=== PATIENT | male | born 1980 | race Caucasian/White ===

== ENCOUNTER 2018-01-09 19:43 | Emergency (ER) | payer SELFPAY ==
[~2018-01-09] VITALS: Ht 177.8 cm; Wt 70.3 kg
[~2018-01-09 19:43] MED LIST: ALBU90OI INH; ASPI81EC PO; Amoxicillin500 MG PO; Cleocin HCl150 MG PO; Cleocin HCl300 MG PO; GLUC500 PO; HYDACE5 PO; HYDACE5325 PO; IBUP800 PO; NAPR500 PO; PENVK500 PO; RXHYD5325 PO; SPACE CHAMBER1 EACH MC; Ultram50 MG PO; Veetids 500500 MG PO
[2018-01-09] MEDS ORDERED: PENVK500 PO (20:48)
[2018-01-09] MEDS ORDERED: IBUP800 PO (20:48)
== END 2018-01-09 20:52 | disposition home or self-care (01) ==
LOC: ER 19:43
DX: K08.89 Other specified disorders of teeth and supporting structures (principal); F17.210 Nicotine dependence, cigarettes, uncomplicated

== ENCOUNTER 2018-01-12 19:40 | Inpatient (IN) | payer SELFPAY ==
[~2018-01-12] VITALS: Ht 177.8 cm; Wt 73.0 kg
[2018-01-12 20:35] LABS: BASOPHILS ABSOLUTE AUTO 0.02 K/mm3 (0.00-0.23); BASOPHILS PERCENT AUTO 0 % (0-2); EOSINOPHILS ABSOLUTE AUTO 0.07 K/mm3 (0.00-0.68); EOSINOPHILS PERCENT AUTO 0 % (0-6); Hematocrit 43.2 % (37.0-53.0); Hemoglobin 15.1 g/dL (13.5-17.5); IMMATURE GRAN ABSOLUTE AUTO 0.09 K/mm3 (0.00-0.10); IMMATURE GRAN PERCENT AUTO 1 % (0-1); LYMPHOCYTES ABSOLUTE AUTO 1.51 K/mm3 (0.84-5.20); LYMPHOCYTES PERCENT AUTO 9 % (21-46); MONOCYTES ABSOLUTE AUTO 1.25 K/mm3 (0.16-1.47); MONOCYTES PERCENT AUTO 8 % (4-13); Mean Corpuscular HGB 30.9 pg (26.0-34.0); Mean Corpuscular Volume 89 fL (80-100); Mean Platelet Volume 9.9 fL (9.1-12.4); NEUTROPHILS ABSOLUTE AUTO 13.74 K/mm3 (1.96-9.15); NEUTROPHILS PERCENT AUTO 82 % (41-73); Platelet Count 296 K/mm3 (150-400); RDW Coefficient Variation 13.2 % (11.7-14.2); RDW Standard Deviation 43.5 fL (35.1-46.3); Red Blood Cell Count 4.88 M/mm3 (4.30-5.90); White Blood Cell Count 16.68 K/mm3 (4.00-11.30)
[2018-01-12 20:47] LABS: Bun/Creatinine Ratio 18.5 (12.0-20.0); Calcium, Blood 8.5 mg/dL (8.5-10.1); Creatinine, Blood 2.54 mg/dL (0.60-1.20); Potassium, Blood 3.6 mmol/L (3.5-5.5)
[2018-01-12] MEDS ORDERED: Aspirin EC325 MG PO (22:22)
[2018-01-12] MEDS ORDERED: ACET500 (22:23)
[2018-01-12 23:12] LABS: Source, Urine Clean Catch
[2018-01-12 23:24] LABS: Bilirubin, Urine Neg (Neg); Blood, Urine 2+ (Neg); Glucose Qualitative, Urine Neg (Neg); Ketones, Urine Neg (Neg); Leukocyte Esterase, Urine Neg (Neg); Nitrite, Urine Neg (Neg); Protein, Urine 1+ (Neg); Urobilinogen, Urine NORM (Normal)
[2018-01-12 23:39] LABS: Appearance, Urine Clear (Clear); Color, Urine Yellow (P-Yellow); U Amphetamine Screen Not Detected; U Barbituate Screen Not Detected; U Benzodiazapine Screen Not Detected; U Buprenorphine Screen Not Detected; U Cannabinoids Screen Not Detected; U Cocaine Screen Not Detected; U Methadone Screen Not Detected; U Methamphetamine Screen Not Detected; U Opiates Screen Not Detected; U Oxycodone Screen Not Detected; U Phencyclidine Screen Not Detected; U Propoxyphene Screen Not Detected
[2018-01-12 23:40] LABS: Red Blood Cells, Urine 0-2 /hpf (0-2); Squamous Epithelial Cells Rare /hpf (Few)
[2018-01-12 23:41] LABS: Bacteria Few /hpf
[2018-01-13 04:58] LABS: BASOPHILS ABSOLUTE AUTO 0.02 K/mm3 (0.00-0.23); BASOPHILS PERCENT AUTO 0 % (0-2); EOSINOPHILS ABSOLUTE AUTO 0.12 K/mm3 (0.00-0.68); EOSINOPHILS PERCENT AUTO 1 % (0-6); Hematocrit 37.8 % (37.0-53.0); Hemoglobin 13.1 g/dL (13.5-17.5); IMMATURE GRAN ABSOLUTE AUTO 0.04 K/mm3 (0.00-0.10); IMMATURE GRAN PERCENT AUTO 0 % (0-1); LYMPHOCYTES ABSOLUTE AUTO 1.81 K/mm3 (0.84-5.20); LYMPHOCYTES PERCENT AUTO 14 % (21-46); MONOCYTES ABSOLUTE AUTO 1.32 K/mm3 (0.16-1.47); MONOCYTES PERCENT AUTO 10 % (4-13); Mean Corpuscular HGB 30.2 pg (26.0-34.0); Mean Corpuscular HGB Conc 34.7 g/dL (31.5-36.5); Mean Corpuscular Volume 87 fL (80-100); Mean Platelet Volume 9.6 fL (9.1-12.4); NEUTROPHILS ABSOLUTE AUTO 9.66 K/mm3 (1.96-9.15); NEUTROPHILS PERCENT AUTO 74 % (41-73); Platelet Count 268 K/mm3 (150-400); RDW Coefficient Variation 13.2 % (11.7-14.2); RDW Standard Deviation 42.5 fL (35.1-46.3); Red Blood Cell Count 4.34 M/mm3 (4.30-5.90); White Blood Cell Count 12.97 K/mm3 (4.00-11.30)
[2018-01-13 05:22] LABS: Albumin, Blood 2.5 g/dL (3.4-5.0); Albumin/Globulin Ratio 0.7 (0.8-1.8); Bilirubin, Total 0.5 mg/dL (0.1-1.0); Bun/Creatinine Ratio 20.1 (12.0-20.0); Creatinine, Blood 1.94 mg/dL (0.60-1.20); Globulin, Blood 3.6 g/dL (2.2-4.0); Potassium, Blood 3.2 mmol/L (3.5-5.5); Total Protein, Blood 6.1 g/dL (6.4-8.2)
[2018-01-14 05:08] LABS: BASOPHILS ABSOLUTE AUTO 0.02 K/mm3 (0.00-0.23); BASOPHILS PERCENT AUTO 0 % (0-2); EOSINOPHILS ABSOLUTE AUTO 0.09 K/mm3 (0.00-0.68); EOSINOPHILS PERCENT AUTO 1 % (0-6); Hematocrit 36.5 % (37.0-53.0); Hemoglobin 12.9 g/dL (13.5-17.5); IMMATURE GRAN ABSOLUTE AUTO 0.04 K/mm3 (0.00-0.10); IMMATURE GRAN PERCENT AUTO 0 % (0-1); LYMPHOCYTES ABSOLUTE AUTO 2.32 K/mm3 (0.84-5.20); LYMPHOCYTES PERCENT AUTO 23 % (21-46); MONOCYTES ABSOLUTE AUTO 1.12 K/mm3 (0.16-1.47); MONOCYTES PERCENT AUTO 11 % (4-13); Mean Corpuscular HGB 30.6 pg (26.0-34.0); Mean Corpuscular HGB Conc 35.3 g/dL (31.5-36.5); Mean Corpuscular Volume 87 fL (80-100); NEUTROPHILS ABSOLUTE AUTO 6.61 K/mm3 (1.96-9.15); NEUTROPHILS PERCENT AUTO 65 % (41-73); Platelet Count 295 K/mm3 (150-400); RDW Coefficient Variation 13.3 % (11.7-14.2); RDW Standard Deviation 42.3 fL (35.1-46.3); Red Blood Cell Count 4.22 M/mm3 (4.30-5.90)
[2018-01-14 05:39] LABS: Anion Gap 10 mmol/L (6-16); Blood Urea Nitrogen 8 mg/dL (8-24); Bun/Creatinine Ratio 11.4 (12.0-20.0); CO2, Blood 22 mmol/L (21-32); Calcium, Blood 8.7 mg/dL (8.5-10.1); Chloride, Blood 110 mmol/L (98-108); Glomerular Filtration Rate >60 (60-); Glucose, Blood 87 mg/dL (70-99); Potassium, Blood 2.9 mmol/L (3.5-5.5); Sodium, Blood 142 mmol/L (136-145)
[2018-01-15 05:55] LABS: Anion Gap 8 mmol/L (6-16); Blood Urea Nitrogen 3 mg/dL (8-24); Bun/Creatinine Ratio 5.1 (12.0-20.0); CO2, Blood 26 mmol/L (21-32); Calcium, Blood 8.4 mg/dL (8.5-10.1); Chloride, Blood 108 mmol/L (98-108); Creatinine, Blood 0.59 mg/dL (0.60-1.20); Glomerular Filtration Rate >60 (60-); Glucose, Blood 105 mg/dL (70-99); Potassium, Blood 2.9 mmol/L (3.5-5.5); Sodium, Blood 142 mmol/L (136-145)
[2018-01-16 05:56] LABS: Anion Gap 6 mmol/L (6-16); Blood Urea Nitrogen 4 mg/dL (8-24); Bun/Creatinine Ratio 6.7 (12.0-20.0); CO2, Blood 27 mmol/L (21-32); Calcium, Blood 8.6 mg/dL (8.5-10.1); Chloride, Blood 110 mmol/L (98-108); Glomerular Filtration Rate >60 (60-); Glucose, Blood 101 mg/dL (70-99); Potassium, Blood 3.3 mmol/L (3.5-5.5); Sodium, Blood 143 mmol/L (136-145)
[2018-01-16] MEDS ORDERED: Acidophilus La1 EACH PO (10:47)
[2018-01-16] MEDS ORDERED: OXYC5 PO (10:49)
[2018-01-16] MEDS ORDERED: Augmentin 875-1 EACH PO (10:49)
== END 2018-01-16 12:19 | disposition home or self-care (01) | DRG 683 ==
LOC: ER 19:40 → MEDS 21:44 → ENPENDDIS 01-16 11:00 → MEDS 01-16 12:19
PROVIDERS: Emergency Medicine; Internal Medicine
DX: N17.9 Acute kidney failure, unspecified (principal); L03.213 Periorbital cellulitis; E87.6 Hypokalemia; K02.9 Dental caries, unspecified; J32.9 Chronic sinusitis, unspecified; E86.0 Dehydration; F17.210 Nicotine dependence, cigarettes, uncomplicated
CPT/HCPCS: 36415; 70486; 76770; 80048; 80053; 81001; 85025; 87086; 96361; 96365; 96375; 99285; J0295; J1650; J2405; J3010; J7030

== ENCOUNTER 2019-07-03 13:56 | Emergency (ER) | payer MEDICAID ==
[~2019-07-03] VITALS: Ht 177.8 cm; Wt 72.6 kg
[~2019-07-03 13:56] MED LIST changes: +ACET500; +Acidophilus La1 EACH PO; +Aspirin EC325 MG PO; +Augmentin 875-1 EACH PO; +OXYC5 PO
[2019-07-03] MEDS ORDERED: IBUP600 PO (15:20)
== END 2019-07-03 15:26 | disposition home or self-care (01) ==
LOC: ER 13:56
DX: S83.92XA Sprain of unspecified site of left knee, initial encounter (principal); V13.9XXA Unspecified pedal cyclist injured in collision with car, pick-up truck or van in traffic accident, initial encounter; F17.210 Nicotine dependence, cigarettes, uncomplicated
CPT/HCPCS: 73564; 99283-25

== ENCOUNTER 2021-12-05 13:06 | Emergency (ER) | payer SELFPAY ==
[~2021-12-05] VITALS: Ht 177.8 cm; Wt 72.6 kg
[~2021-12-05 13:06] MED LIST changes: +AMOCLA875 PO; +Colace250 MG PO; +Flagyl500 MG PO; +HYDACE10B PO; +HYDR1TAB94 PO; +IBUP600 PO; +PRED20 PO
[2021-12-05] MEDS ORDERED: Amoxicillin500 MG PO (13:15)
== END 2021-12-05 13:15 | disposition home or self-care (01) ==
LOC: ER 13:06
DX: K04.7 Periapical abscess without sinus (principal); F17.210 Nicotine dependence, cigarettes, uncomplicated
CPT/HCPCS: 99282

== ENCOUNTER 2022-05-25 13:04 | Emergency (ER) | payer SELFPAY ==
[~2022-05-25] VITALS: Ht 177.8 cm; Wt 72.6 kg
== END 2022-05-25 14:51 | disposition home or self-care (01) ==
LOC: ER 13:04
DX: S22.41XA Multiple fractures of ribs, right side, initial encounter for closed fracture (principal); F17.210 Nicotine dependence, cigarettes, uncomplicated; W19.XXXA Unspecified fall, initial encounter
CPT/HCPCS: 71101

== ENCOUNTER 2022-07-01 17:40 | Emergency (ER) | payer SELFPAY ==
[~2022-07-01] VITALS: Ht 175.3 cm; Wt 72.6 kg
[2022-07-01] MEDS ORDERED: AMOCLA875 PO (18:58)
== END 2022-07-01 19:10 | disposition home or self-care (01) ==
LOC: ER 17:40
DX: K04.7 Periapical abscess without sinus (principal); F17.210 Nicotine dependence, cigarettes, uncomplicated; Z79.899 Other long term (current) drug therapy
CPT/HCPCS: 99282; A9270

== ENCOUNTER 2023-01-29 17:39 | Emergency (ER) | payer MEDICAID ==
[~2023-01-29] VITALS: Ht 177.8 cm; Wt 68.0 kg
[2023-01-29 17:42] VITALS: BP 112/88
[2023-01-29] MEDS ORDERED: AMOX-CLAV 875-1 EAC1 PO (19:46)
[2023-02-01] MEDS ORDERED: K-Dur20 MEQ PO (19:54)
== END 2023-01-29 19:56 | disposition home or self-care (01) ==
LOC: ER 17:39
DX: J32.9 Chronic sinusitis, unspecified (principal); F17.210 Nicotine dependence, cigarettes, uncomplicated
CPT/HCPCS: 99283; A9270

== ENCOUNTER 2023-01-31 17:25 | Emergency (ER) | payer OTHER ==
[~2023-01-31] VITALS: Ht 177.8 cm; Wt 150.0 kg
[~2023-01-31 17:25] MED LIST changes: +AMOX-CLAV 875-1 EAC1 PO
[2023-02-01] MEDS ORDERED: K-Dur20 MEQ PO (19:54)
== END 2023-01-31 18:49 | disposition home or self-care (01) ==
LOC: ER 17:25
DX: J44.9 Chronic obstructive pulmonary disease, unspecified (principal); F17.210 Nicotine dependence, cigarettes, uncomplicated
CPT/HCPCS: 71046; 99283-25

== ENCOUNTER → 2023-02-05 | Outpatient (CLI) | payer OTHER ==
[~2023-02-05] MED LIST changes: +K-Dur20 MEQ PO
[2023-02-05 11:52] LABS: BASOPHILS ABSOLUTE AUTO 0.04 K/mm3 (0.00-0.23); BASOPHILS PERCENT AUTO 0 % (0-2); EOSINOPHILS ABSOLUTE AUTO 0.04 K/mm3 (0.00-0.68); EOSINOPHILS PERCENT AUTO 0 % (0-6); Hematocrit 42.4 % (37.0-53.0); Hemoglobin 15.5 g/dL (13.5-17.5); IMMATURE GRAN ABSOLUTE AUTO 0.05 K/mm3 (0.00-0.10); IMMATURE GRAN PERCENT AUTO 1 % (0-1); LYMPHOCYTES ABSOLUTE AUTO 2.54 K/mm3 (0.84-5.20); LYMPHOCYTES PERCENT AUTO 28 % (21-46); MONOCYTES ABSOLUTE AUTO 0.56 K/mm3 (0.16-1.47); MONOCYTES PERCENT AUTO 6 % (4-13); Mean Corpuscular HGB 35.7 pg (26.0-34.0); Mean Corpuscular HGB Conc 36.6 g/dL (31.5-36.5); Mean Corpuscular Volume 98 fL (80-100); Mean Platelet Volume 9.3 fL (9.1-12.4); NEUTROPHILS PERCENT AUTO 65 % (41-73); NRBC ABSOLUTE 0.02 K/mm3 (0.00-0.02); NRBC Auto 0.2 /100 WBC (0.0-0.2); Platelet Count 183 K/mm3 (150-400); RDW Coefficient Variation 13.3 % (11.7-14.2); Red Blood Cell Count 4.34 M/mm3 (4.30-5.90); White Blood Cell Count 9.13 K/mm3 (4.00-11.30)
[2023-02-05 12:05] LABS: Albumin/Globulin Ratio 0.8 (0.8-1.8); Bilirubin, Total 0.8 mg/dL (0.1-1.0); Bun/Creatinine Ratio 5.7 (12.0-20.0); Calcium, Blood 8.9 mg/dL (8.5-10.1); Creatinine, Blood 1.06 mg/dL (0.60-1.20); Globulin, Blood 3.8 g/dL (2.2-4.0); Potassium, Blood 3.5 mmol/L (3.5-5.5); Total Protein, Blood 6.8 g/dL (6.4-8.2)
== END | disposition home or self-care (01) ==
LOC: LAB SHORT 11:45 → LAB 11:45
PROVIDERS: Family Medicine
DX: R11.0 Nausea (principal)
CPT/HCPCS: 80053; 85025

== ENCOUNTER 2023-02-16 11:56 | Emergency (ER) | payer OTHER ==
[~2023-02-16] VITALS: Ht 177.8 cm; Wt 59.0 kg
[2023-02-16 12:01] VITALS: BP 115/85
[2023-02-16 12:43] LABS: BASOPHILS ABSOLUTE AUTO 0.06 K/mm3 (0.00-0.23); BASOPHILS PERCENT AUTO 1 % (0-2); EOSINOPHILS ABSOLUTE AUTO 0.02 K/mm3 (0.00-0.68); EOSINOPHILS PERCENT AUTO 0 % (0-6); Hematocrit 40.3 % (37.0-53.0); Hemoglobin 14.2 g/dL (13.5-17.5); IMMATURE GRAN ABSOLUTE AUTO 0.03 K/mm3 (0.00-0.10); IMMATURE GRAN PERCENT AUTO 0 % (0-1); LYMPHOCYTES PERCENT AUTO 30 % (21-46); MONOCYTES ABSOLUTE AUTO 0.57 K/mm3 (0.16-1.47); MONOCYTES PERCENT AUTO 9 % (4-13); Mean Corpuscular HGB 35.5 pg (26.0-34.0); Mean Corpuscular HGB Conc 35.2 g/dL (31.5-36.5); Mean Corpuscular Volume 101 fL (80-100); Mean Platelet Volume 9.7 fL (9.1-12.4); NEUTROPHILS ABSOLUTE AUTO 4.01 K/mm3 (1.96-9.15); NEUTROPHILS PERCENT AUTO 60 % (41-73); Platelet Count 267 K/mm3 (150-400); RDW Coefficient Variation 13.5 % (11.7-14.2); RDW Standard Deviation 50.7 fL (35.1-46.3); White Blood Cell Count 6.69 K/mm3 (4.00-11.30)
[2023-02-16 13:00] LABS: Albumin, Blood 2.7 g/dL (3.4-5.0); Albumin/Globulin Ratio 0.8 (0.8-1.8); Bilirubin, Total 0.4 mg/dL (0.1-1.0); Bun/Creatinine Ratio 6.8 (12.0-20.0); Calcium, Blood 8.1 mg/dL (8.5-10.1); Creatinine, Blood 0.88 mg/dL (0.60-1.20); Globulin, Blood 3.2 g/dL (2.2-4.0); Potassium, Blood 3.2 mmol/L (3.5-5.5); Total Protein, Blood 5.9 g/dL (6.4-8.2)
[2023-02-16 13:13] LABS: Source, Urine Clean Catch
[2023-02-16 13:22] LABS: Appearance, Urine Clear (Clear); Bilirubin, Urine Neg (Neg); Blood, Urine Neg (Neg); Color, Urine Pale Yellow (P-Yellow); Glucose Qualitative, Urine Neg (Neg); Ketones, Urine Neg (Neg); Leukocyte Esterase, Urine Neg (Neg); Nitrite, Urine Neg (Neg); Protein, Urine Neg (Neg); Urobilinogen, Urine NORM (Normal)
== END 2023-02-16 14:53 | disposition home or self-care (01) ==
LOC: ER 11:56
PROVIDERS: Physician Assistant
DX: F10.10 Alcohol abuse, uncomplicated (principal); R74.01 Elevation of levels of liver transaminase levels; F17.210 Nicotine dependence, cigarettes, uncomplicated; Y90.6 Blood alcohol level of 120-199 mg/100 ml
CPT/HCPCS: 80053; 81003; 82140; 83690; 85025; A9270; G0480; J2405; J7030

== ENCOUNTER 2023-02-19 11:11 | Emergency (ER) | payer OTHER ==
[~2023-02-19] VITALS: Ht 177.8 cm; Wt 63.5 kg
[2023-02-19 11:45] LABS: BASOPHILS ABSOLUTE AUTO 0.04 K/mm3 (0.00-0.23); BASOPHILS PERCENT AUTO 1 % (0-2); EOSINOPHILS ABSOLUTE AUTO 0.02 K/mm3 (0.00-0.68); EOSINOPHILS PERCENT AUTO 0 % (0-6); Hematocrit 39.3 % (37.0-53.0); Hemoglobin 13.9 g/dL (13.5-17.5); IMMATURE GRAN ABSOLUTE AUTO 0.02 K/mm3 (0.00-0.10); IMMATURE GRAN PERCENT AUTO 0 % (0-1); LYMPHOCYTES PERCENT AUTO 25 % (21-46); MONOCYTES ABSOLUTE AUTO 0.49 K/mm3 (0.16-1.47); MONOCYTES PERCENT AUTO 7 % (4-13); Mean Corpuscular HGB 35.5 pg (26.0-34.0); Mean Corpuscular HGB Conc 35.4 g/dL (31.5-36.5); Mean Corpuscular Volume 101 fL (80-100); Mean Platelet Volume 9.6 fL (9.1-12.4); NEUTROPHILS ABSOLUTE AUTO 4.65 K/mm3 (1.96-9.15); NEUTROPHILS PERCENT AUTO 67 % (41-73); Platelet Count 224 K/mm3 (150-400); RDW Coefficient Variation 13.2 % (11.7-14.2); RDW Standard Deviation 48.9 fL (35.1-46.3); Red Blood Cell Count 3.91 M/mm3 (4.30-5.90); White Blood Cell Count 6.92 K/mm3 (4.00-11.30)
[2023-02-19 12:12] LABS: Albumin, Blood 2.7 g/dL (3.4-5.0); Albumin/Globulin Ratio 0.9 (0.8-1.8); Bilirubin, Total 0.5 mg/dL (0.1-1.0); Bun/Creatinine Ratio 10.3 (12.0-20.0); Calcium, Blood 8.5 mg/dL (8.5-10.1); Creatinine, Blood 0.97 mg/dL (0.60-1.20); Globulin, Blood 3.1 g/dL (2.2-4.0); Potassium, Blood 3.2 mmol/L (3.5-5.5); Total Protein, Blood 5.8 g/dL (6.4-8.2)
[2023-02-19] MEDS ORDERED: PROBIOTIC1 EA13 PO (12:25)
[2023-02-19] MEDS ORDERED: POTA10T PO (12:25)
[2023-02-19] MEDS ORDERED: B-1100 M1 PO (12:25)
[2023-02-19] MEDS ORDERED: FOLI1 PO (12:25)
[2023-02-19] MEDS ORDERED: OMEP20ER PO (12:25)
[2023-02-19] MEDS ORDERED: ONDA4ODT MM (12:25)
[2023-02-19 12:42] VITALS: BP 126/86
== END 2023-02-19 12:43 | disposition home or self-care (01) ==
LOC: ER 11:11
PROVIDERS: Emergency Medicine
DX: R11.2 Nausea with vomiting, unspecified (principal); R74.01 Elevation of levels of liver transaminase levels; F10.10 Alcohol abuse, uncomplicated; E87.6 Hypokalemia; R10.9 Unspecified abdominal pain; F17.210 Nicotine dependence, cigarettes, uncomplicated
CPT/HCPCS: 80053; 83690; 85025; J2405; J7030

== ENCOUNTER 2023-02-25 10:19 | Emergency (ER) | payer OTHER ==
[~2023-02-25] VITALS: Ht 177.8 cm; Wt 57.1 kg
[~2023-02-25 10:19] MED LIST changes: +B-1100 M1 PO; +FOLI1 PO; +OMEP20ER PO; +ONDA4ODT MM; +POTA10T PO; +PROBIOTIC1 EA13 PO
[2023-02-25 11:05] LABS: BASOPHILS ABSOLUTE AUTO 0.04 K/mm3 (0.00-0.23); BASOPHILS PERCENT AUTO 1 % (0-2); EOSINOPHILS ABSOLUTE AUTO 0.07 K/mm3 (0.00-0.68); EOSINOPHILS PERCENT AUTO 1 % (0-6); Hematocrit 39.9 % (37.0-53.0); Hemoglobin 14.6 g/dL (13.5-17.5); IMMATURE GRAN ABSOLUTE AUTO 0.01 K/mm3 (0.00-0.10); IMMATURE GRAN PERCENT AUTO 0 % (0-1); LYMPHOCYTES ABSOLUTE AUTO 2.19 K/mm3 (0.84-5.20); LYMPHOCYTES PERCENT AUTO 34 % (21-46); MONOCYTES ABSOLUTE AUTO 0.49 K/mm3 (0.16-1.47); MONOCYTES PERCENT AUTO 8 % (4-13); Mean Corpuscular HGB 35.7 pg (26.0-34.0); Mean Corpuscular HGB Conc 36.6 g/dL (31.5-36.5); Mean Corpuscular Volume 98 fL (80-100); Mean Platelet Volume 10.1 fL (9.1-12.4); NEUTROPHILS ABSOLUTE AUTO 3.58 K/mm3 (1.96-9.15); NEUTROPHILS PERCENT AUTO 56 % (41-73); Platelet Count 162 K/mm3 (150-400); RDW Coefficient Variation 12.9 % (11.7-14.2); RDW Standard Deviation 46.4 fL (35.1-46.3); Red Blood Cell Count 4.09 M/mm3 (4.30-5.90); White Blood Cell Count 6.38 K/mm3 (4.00-11.30)
[2023-02-25 11:09] LABS: Albumin, Blood 2.8 g/dL (3.4-5.0); Albumin/Globulin Ratio 0.9 (0.8-1.8); Bilirubin, Total 0.6 mg/dL (0.1-1.0); Bun/Creatinine Ratio 5.9 (12.0-20.0); Calcium, Blood 8.6 mg/dL (8.5-10.1); Creatinine, Blood 1.02 mg/dL (0.60-1.20); Potassium, Blood 3.4 mmol/L (3.5-5.5); Total Protein, Blood 5.8 g/dL (6.4-8.2)
[2023-02-25 11:45] VITALS: BP 130/90
== END 2023-02-25 12:02 | disposition home or self-care (01) ==
LOC: ER 10:19
PROVIDERS: Emergency Medicine
DX: F10.10 Alcohol abuse, uncomplicated (principal); Y90.6 Blood alcohol level of 120-199 mg/100 ml; F17.210 Nicotine dependence, cigarettes, uncomplicated; Z79.899 Other long term (current) drug therapy
CPT/HCPCS: 80053; 83690; 83735; 85025; 93005; 93010; 96360; 99284-25; G0480; J7030

== ENCOUNTER 2023-09-18 10:12 | Emergency (ER) | payer OTHER ==
[~2023-09-18] VITALS: Ht 177.8 cm; Wt 68.0 kg
[2023-09-18 12:06] LABS: BASOPHILS ABSOLUTE AUTO 0.04 K/mm3 (0.00-0.23); BASOPHILS PERCENT AUTO 0 % (0-2); EOSINOPHILS ABSOLUTE AUTO 0.02 K/mm3 (0.00-0.68); EOSINOPHILS PERCENT AUTO 0 % (0-6); Hematocrit 40.7 % (37.0-53.0); IMMATURE GRAN ABSOLUTE AUTO 0.03 K/mm3 (0.00-0.10); IMMATURE GRAN PERCENT AUTO 0 % (0-1); LYMPHOCYTES ABSOLUTE AUTO 2.29 K/mm3 (0.84-5.20); LYMPHOCYTES PERCENT AUTO 25 % (21-46); MONOCYTES ABSOLUTE AUTO 0.57 K/mm3 (0.16-1.47); MONOCYTES PERCENT AUTO 6 % (4-13); Mean Corpuscular HGB 33.1 pg (26.0-34.0); Mean Corpuscular HGB Conc 34.4 g/dL (31.5-36.5); Mean Corpuscular Volume 96 fL (80-100); Mean Platelet Volume 10.7 fL (9.1-12.4); NEUTROPHILS ABSOLUTE AUTO 6.17 K/mm3 (1.96-9.15); NEUTROPHILS PERCENT AUTO 68 % (41-73); Platelet Count 237 K/mm3 (150-400); RDW Standard Deviation 46.3 fL (35.1-46.3); Red Blood Cell Count 4.23 M/mm3 (4.30-5.90); White Blood Cell Count 9.12 K/mm3 (4.00-11.30)
[2023-09-18 12:28] LABS: Albumin, Blood 3.4 g/dL (3.4-5.0); Albumin/Globulin Ratio 1.1 (0.8-1.8); Bilirubin, Total 0.4 mg/dL (0.1-1.0); Bun/Creatinine Ratio 13.9 (12.0-20.0); Calcium, Blood 9.4 mg/dL (8.5-10.1); Creatinine, Blood 1.08 mg/dL (0.60-1.20); Globulin, Blood 3.2 g/dL (2.2-4.0); Potassium, Blood 3.1 mmol/L (3.5-5.5); Total Protein, Blood 6.6 g/dL (6.4-8.2)
[2023-09-18 12:43] VITALS: BP 153/103
[2023-09-18] MEDS ORDERED: FURO20 PO (13:29)
== END 2023-09-18 13:52 | disposition home or self-care (01) ==
LOC: ER 10:12
PROVIDERS: Physician Assistant
DX: I42.9 Cardiomyopathy, unspecified (principal); R00.0 Tachycardia, unspecified; R60.0 Localized edema; R79.89 Other specified abnormal findings of blood chemistry; F10.10 Alcohol abuse, uncomplicated; F17.210 Nicotine dependence, cigarettes, uncomplicated
CPT/HCPCS: 71046; 80053; 83880; 85025; 93005; 93010; 96374; 99285-25; J1940

== ENCOUNTER 2023-09-28 11:58 | Inpatient (IN) | payer OTHER ==
[~2023-09-28] VITALS: Ht 177.8 cm; Wt 68.0 kg
[~2023-09-28 11:58] MED LIST changes: +FURO20 PO
[2023-09-28 12:33] LABS: BASOPHILS ABSOLUTE AUTO 0.04 K/mm3 (0.00-0.23); BASOPHILS PERCENT AUTO 1 % (0-2); EOSINOPHILS ABSOLUTE AUTO 0.04 K/mm3 (0.00-0.68); EOSINOPHILS PERCENT AUTO 1 % (0-6); Hematocrit 38.9 % (37.0-53.0); IMMATURE GRAN ABSOLUTE AUTO 0.01 K/mm3 (0.00-0.10); IMMATURE GRAN PERCENT AUTO 0 % (0-1); LYMPHOCYTES ABSOLUTE AUTO 2.59 K/mm3 (0.84-5.20); LYMPHOCYTES PERCENT AUTO 35 % (21-46); MONOCYTES ABSOLUTE AUTO 0.54 K/mm3 (0.16-1.47); MONOCYTES PERCENT AUTO 7 % (4-13); Mean Corpuscular HGB 32.2 pg (26.0-34.0); Mean Corpuscular HGB Conc 33.4 g/dL (31.5-36.5); Mean Corpuscular Volume 96 fL (80-100); Mean Platelet Volume 10.6 fL (9.1-12.4); NEUTROPHILS ABSOLUTE AUTO 4.11 K/mm3 (1.96-9.15); NEUTROPHILS PERCENT AUTO 56 % (41-73); Platelet Count 213 K/mm3 (150-400); RDW Coefficient Variation 12.8 % (11.7-14.2); RDW Standard Deviation 45.2 fL (35.1-46.3); Red Blood Cell Count 4.04 M/mm3 (4.30-5.90); White Blood Cell Count 7.33 K/mm3 (4.00-11.30)
[2023-09-28 12:46] LABS: Albumin, Blood 3.2 g/dL (3.4-5.0); Albumin/Globulin Ratio 1.2 (0.8-1.8); Bilirubin, Total 0.3 mg/dL (0.1-1.0); Bun/Creatinine Ratio 12.3 (12.0-20.0); Calcium, Blood 8.6 mg/dL (8.5-10.1); Creatinine, Blood 1.22 mg/dL (0.60-1.20); Globulin, Blood 2.7 g/dL (2.2-4.0); Potassium, Blood 2.9 mmol/L (3.5-5.5); Total Protein, Blood 5.9 g/dL (6.4-8.2)
[2023-09-28 15:20] LABS: Influenza A, PCR NEGATIVE (NEGATIVE); Influenza B, PCR NEGATIVE (NEGATIVE); Resp Syncytial Virus, PCR NEGATIVE (NEGATIVE); SARS-Cov-2 (COVID-19) PCR, MMC NEGATIVE (NEGATIVE)
[2023-09-28 16:08] LABS: CHOL/HDL RATIO 2.2; Cholesterol 122 mg/dL (50-200); HDL Cholesterol 56 mg/dL (>39); LDL/HDL RATIO 0.9; Low Density Lipoprotein Chol 51 mg/dL (0-110); Triglycerides 76 mg/dL (30-160); Very Low Density Lipoprot Chol 15 mg/dL (6-32)
[2023-09-28 17:17] VITALS: BP 127/86
--- NOTE | 2023-09-28 17:57 | NUR ---
Pt arrived to 330 via gurney from ED, transfered himself to the bed, a/ox4, pleasant and cooperative with care, follows commands well, denies pain, just sob, but reports that it is improved from when he came in, lungs are clear t/o, a bit dim in bases, on r/a, no cough noted, hrr, bounding, trace edema noted to b/l le, ppp+2, cap refill <3 sec, vs stable, afebrile, piv to lac, site is clear and patent infusing potassium at this time, btx4, reports reg bm's, voids without diff, skin c/w/d, loreto, shari, oriented to room layout and call system, call light in reach.
[2023-09-28 19:28] VITALS: BP 132/95
[2023-09-29 00:29] VITALS: BP 126/90
[2023-09-29 03:15] VITALS: BP 133/99
[2023-09-29 05:40] LABS: BASOPHILS ABSOLUTE AUTO 0.06 K/mm3 (0.00-0.23); BASOPHILS PERCENT AUTO 1 % (0-2); EOSINOPHILS ABSOLUTE AUTO 0.09 K/mm3 (0.00-0.68); EOSINOPHILS PERCENT AUTO 1 % (0-6); Hematocrit 40.7 % (37.0-53.0); Hemoglobin 13.9 g/dL (13.5-17.5); IMMATURE GRAN ABSOLUTE AUTO 0.03 K/mm3 (0.00-0.10); IMMATURE GRAN PERCENT AUTO 0 % (0-1); LYMPHOCYTES ABSOLUTE AUTO 3.27 K/mm3 (0.84-5.20); LYMPHOCYTES PERCENT AUTO 31 % (21-46); MONOCYTES ABSOLUTE AUTO 0.85 K/mm3 (0.16-1.47); MONOCYTES PERCENT AUTO 8 % (4-13); Mean Corpuscular HGB 32.9 pg (26.0-34.0); Mean Corpuscular HGB Conc 34.2 g/dL (31.5-36.5); Mean Corpuscular Volume 96 fL (80-100); Mean Platelet Volume 10.9 fL (9.1-12.4); NEUTROPHILS ABSOLUTE AUTO 6.23 K/mm3 (1.96-9.15); NEUTROPHILS PERCENT AUTO 59 % (41-73); Platelet Count 199 K/mm3 (150-400); RDW Coefficient Variation 12.8 % (11.7-14.2); RDW Standard Deviation 45.2 fL (35.1-46.3); Red Blood Cell Count 4.23 M/mm3 (4.30-5.90); White Blood Cell Count 10.53 K/mm3 (4.00-11.30)
--- NOTE | 2023-09-29 06:10 | NUR ---
SHIFT SUMMARY CIWA SCORES 0-3 OVER[address]IGHT[address] MR DURAN DENIED ANY S/S ALCOHOL WITHDRAWAL AND HAS BEEN CALM, RESTING IN BED. HE SAID HE DRINKS 14OZ MALT LIQUOR EACH EVENING TO HELP HIM SLEEP, LAST DRINK SATURDAY EVENING. ON TELE IN WITH 7 SECONDS TANIYA CALLED FROM [facility] DURING WHICH TIME ME DURAN WAS SLEEPING. INDEPENDENT UP TO THE BATHROOM WITH STEADY GAIT. BED LOW, CALL LIGHT IN REACH.
[2023-09-29 06:41] LABS: Albumin, Blood 3.1 g/dL (3.4-5.0); Bilirubin, Total 0.6 mg/dL (0.1-1.0); Bun/Creatinine Ratio 14.9 (12.0-20.0); Creatinine, Blood 1.34 mg/dL (0.60-1.20); Potassium, Blood 2.9 mmol/L (3.5-5.5); Total Protein, Blood 6.1 g/dL (6.4-8.2)
[2023-09-29 07:08] VITALS: BP 133/95
--- NOTE | 2023-09-29 09:00 | NUR ---
pt laying in bed awake, watching tv, a/ox4, pleasant and coopertive with care, follows commands well, denies pain, lungs are clear t/o, slightly more dim in bases, resp even and unlabored, no cough noted, hrr tele in place running sr to st per monitor, see strip, no edema noted, ppp + 1 cap refill < sec vs stable, afebrile, piv sites are clear and patent, btx4, abd flat soft nontender, voids with out diff, skin c/w/d, maew, shari, call light in reach.
--- NOTE | 2023-09-29 16:15 | NUR ---
pt son was in to visit, pt doing ok, no complaints or needs, call light in reach.
[2023-09-29 16:16] VITALS: BP 121/88
--- NOTE | 2023-09-29 18:14 | NUR ---
pt resting in bed watching tv, no acute changes this shift, no complaints, call light in reach.
[2023-09-29 19:11] VITALS: BP 118/87
[2023-09-30 02:07] VITALS: BP 114/88
[2023-09-30 05:43] LABS: BASOPHILS ABSOLUTE AUTO 0.05 K/mm3 (0.00-0.23); BASOPHILS PERCENT AUTO 1 % (0-2); EOSINOPHILS ABSOLUTE AUTO 0.12 K/mm3 (0.00-0.68); EOSINOPHILS PERCENT AUTO 1 % (0-6); Hematocrit 42.1 % (37.0-53.0); Hemoglobin 14.4 g/dL (13.5-17.5); IMMATURE GRAN ABSOLUTE AUTO 0.03 K/mm3 (0.00-0.10); IMMATURE GRAN PERCENT AUTO 0 % (0-1); LYMPHOCYTES ABSOLUTE AUTO 3.31 K/mm3 (0.84-5.20); LYMPHOCYTES PERCENT AUTO 32 % (21-46); MONOCYTES ABSOLUTE AUTO 0.78 K/mm3 (0.16-1.47); MONOCYTES PERCENT AUTO 8 % (4-13); Mean Corpuscular HGB 32.6 pg (26.0-34.0); Mean Corpuscular HGB Conc 34.2 g/dL (31.5-36.5); Mean Corpuscular Volume 95 fL (80-100); Mean Platelet Volume 10.9 fL (9.1-12.4); NEUTROPHILS ABSOLUTE AUTO 6.01 K/mm3 (1.96-9.15); NEUTROPHILS PERCENT AUTO 58 % (41-73); Platelet Count 216 K/mm3 (150-400); RDW Coefficient Variation 12.6 % (11.7-14.2); RDW Standard Deviation 43.8 fL (35.1-46.3); Red Blood Cell Count 4.42 M/mm3 (4.30-5.90)
--- NOTE | 2023-09-30 05:58 | NUR ---
SHIFT SUMMARY. PATIENT IS A 43 YEAR OLD MALE IN WITH ACUTE CHF. PATIENT IS AOX4. PATIENT IS INDEPENDENT IN ROOM. PATIENT CALLS APPROPRIATELY AND IS ABLE TO MAKE HIS NEEDS KNOWN. PATIENT HAD TROUBLE SLEEPING TONIGHT-FAN PROVIDED FOR COMFORT PT STATES HE SLEEPS W/A FAN AT HOME. PATIENT IS PLEASANT AND COOPERATIVE WITH CARE. BED IS LOCKED IN LOWEST POSITION WITH CALL LIGHT IN REACH. NO S/S OF DISTRESS NOTED AT THIS TIME.
[2023-09-30 06:05] LABS: Bun/Creatinine Ratio 18.9 (12.0-20.0); Calcium, Blood 8.9 mg/dL (8.5-10.1); Creatinine, Blood 1.11 mg/dL (0.60-1.20); Potassium, Blood 3.1 mmol/L (3.5-5.5)
[2023-09-30 07:42] VITALS: BP 119/96
[2023-09-30] MEDS ORDERED: FOLIC ACID0.4 MG PO (13:19)
[2023-09-30] MEDS ORDERED: FURO20 PO (13:20)
[2023-09-30] MEDS ORDERED: Nicoderm Cq1 EAC1 TOP (13:21)
[2023-09-30] MEDS ORDERED: B-1100 M1 PO (13:21)
[2023-09-30] MEDS ORDERED: MAGNESIUM OXID500 MG PO (13:22)
[2023-09-30] MEDS ORDERED: POTCHL20ER PO (13:22)
--- NOTE | 2023-09-30 16:08 | NUR ---
PATIENT D/C'D TO HOME VIA [facility]. DC INSTRUCTIONS AND EDUCATION DISCUSSED WITH PATIENT AND COPY PROVIDED. PATIENT DENIES ANY FURTHER QUESTIONS OR CONCERNS.
[2023-10-02 02:11] LABS: HEMOGLOBIN A1C 5.5 % (4.8-5.6)
== END 2023-09-30 16:06 | disposition home or self-care (01) | DRG 291 ==
LOC: ER 11:58 → MEDS 15:16 → ENPENDDIS 09-30 13:03 → MEDS 09-30 16:06
PROVIDERS: Student in an Organized Health Care Education/Training Program; ADMIT Internal Medicine
DX: I50.21 Acute systolic (congestive) heart failure (principal); J96.01 Acute respiratory failure with hypoxia; N17.9 Acute kidney failure, unspecified; F17.210 Nicotine dependence, cigarettes, uncomplicated; E87.6 Hypokalemia; R77.8 Other specified abnormalities of plasma proteins; F10.10 Alcohol abuse, uncomplicated
CPT/HCPCS: 0241U; 36415; 71046; 80048; 80053; 80061; 83036; 83690; 83735; 83880; 84484; 85025; 93005; 93010; 93306; 96374; 96375; 99285-25; A9270; J1644; J1940; J3411; J3480; J7050

== ENCOUNTER 2024-01-10 14:28 | Inpatient (IN) | payer OTHER ==
[~2024-01-10] VITALS: Ht 162.6 cm; Wt 67.1 kg
[~2024-01-10 14:28] MED LIST changes: +BUME2 PO; +FOLIC ACID0.4 MG PO; +MAGNESIUM OXID500 MG PO; +METO25ER PO; +NICO21TP TOP; +Nicoderm Cq1 EAC1 TOP; +POTCHL20ER PO; +SPIR25 PO; +TRAZ100 PO; +XARELTO20 MG PO
[2024-01-10 15:00] LABS: BASOPHILS ABSOLUTE AUTO 0.04 K/mm3 (0.00-0.23); BASOPHILS PERCENT AUTO 0 % (0-2); EOSINOPHILS ABSOLUTE AUTO 0.02 K/mm3 (0.00-0.68); EOSINOPHILS PERCENT AUTO 0 % (0-6); Hematocrit 35.1 % (37.0-53.0); Hemoglobin 10.7 g/dL (13.5-17.5); IMMATURE GRAN ABSOLUTE AUTO 0.07 K/mm3 (0.00-0.10); IMMATURE GRAN PERCENT AUTO 1 % (0-1); LYMPHOCYTES ABSOLUTE AUTO 1.66 K/mm3 (0.84-5.20); LYMPHOCYTES PERCENT AUTO 14 % (21-46); MONOCYTES ABSOLUTE AUTO 1.31 K/mm3 (0.16-1.47); MONOCYTES PERCENT AUTO 11 % (4-13); Mean Corpuscular HGB 26.2 pg (26.0-34.0); Mean Corpuscular HGB Conc 30.5 g/dL (31.5-36.5); Mean Corpuscular Volume 86 fL (80-100); Mean Platelet Volume 10.3 fL (9.1-12.4); NEUTROPHILS ABSOLUTE AUTO 8.76 K/mm3 (1.96-9.15); NEUTROPHILS PERCENT AUTO 74 % (41-73); NRBC ABSOLUTE 0.13 K/mm3 (0.00-0.02); NRBC Auto 1.1 /100 WBC (0.0-0.2); Platelet Count 343 K/mm3 (150-400); RDW Coefficient Variation 18.6 % (11.7-14.2); RDW Standard Deviation 57.3 fL (35.1-46.3); Red Blood Cell Count 4.08 M/mm3 (4.30-5.90); White Blood Cell Count 11.86 K/mm3 (4.00-11.30)
[2024-01-10 15:18] LABS: Albumin, Blood 2.7 g/dL (3.4-5.0); Albumin/Globulin Ratio 0.7 (0.8-1.8); Bilirubin, Total 0.6 mg/dL (0.1-1.0); Bun/Creatinine Ratio 17.8 (12.0-20.0); Calcium, Blood 8.7 mg/dL (8.5-10.1); Creatinine, Blood 0.84 mg/dL (0.60-1.20); Globulin, Blood 4.1 g/dL (2.2-4.0); Total Protein, Blood 6.8 g/dL (6.4-8.2)
[2024-01-10] MEDS ORDERED: OMEP20ER PO (15:22)
[2024-01-10] MEDS ORDERED: AMOX250CH PO (15:22)
[2024-01-10] MEDS ORDERED: TRAZ100 PO (15:26)
[2024-01-10] MEDS ORDERED: GABA300 PO (15:27)
[2024-01-10] MEDS ORDERED: DIGOX125 MC1 PO (15:27)
[2024-01-10 15:36] LABS: Influenza A, PCR NEGATIVE (NEGATIVE); Influenza B, PCR NEGATIVE (NEGATIVE); Resp Syncytial Virus, PCR NEGATIVE (NEGATIVE); SARS-Cov-2 (COVID-19) PCR, MMC NEGATIVE (NEGATIVE)
[2024-01-10] MEDS ORDERED: Benzonatate 100 MG Cap PO ONE (16:15)
[2024-01-10] MEDS ORDERED: NS IV ONE (16:45)
[2024-01-10] MEDS ORDERED: VANCOMYCIN HCL IV ONE (16:45)
[2024-01-10] MEDS ORDERED: Acetaminophen 325 MG TABLET PO PRN (19:25)
[2024-01-10] MEDS ORDERED: Magnesium Hydroxide Conc 10 ML UDC PO PRN (19:25)
[2024-01-10] MEDS ORDERED: Lactobacil 2-S.Thermo-Bifido 1 1 Cap PO SCH (21:00)
[2024-01-10] MEDS ORDERED: TraZODone HCl 100 MG Tab PO SCH (21:00)
[2024-01-10] MEDS ORDERED: Gabapentin 300 MG Cap PO SCH (21:00)
[2024-01-10 21:27] VITALS: BP 112/79
--- NOTE | 2024-01-10 22:15 | NUR ---
ASSUMPTION OF CARE/TRANSFER NOTE THIS RN RECEIVED REPORT FROM KIM DASILVA IN THE ED. PT TRANSFERRED TO PCU AT 2120. PT WITH STEADY GAIT AND ABLE TO AMBULATE FROM GURNEY TO BED. A&O X4. KNOWS MEDICATIONS AND RECENT HX OF ADMISSIONS, SEE H&P. BP STABLE WITH SBP 110'S. ON RA WITH SPO2 >94%. DYSPNEA NOTED WITH EXERTION. ST WITH HR 100-110'S. PT DENIES CHEST PAIN/PRESSURE. EDEMA IN BLE NOTED; PT REPORTS RUNNING OUT OF DIURETICS 2 DAYS AGO. AFEBRILE. PT WITH URINAL AT BEDSIDE, EDUCATED ON ACCURATE I'S/O'S. BED IN LOWEST POSITION AND CALL LIGHT WITHIN REACH. THIS RN WILL REPORT TO DIONTE VARELA RN.
[2024-01-10 23:57] VITALS: BP 104/83
[2024-01-11 03:46] LABS: BASOPHILS ABSOLUTE AUTO 0.06 K/mm3 (0.00-0.23); BASOPHILS PERCENT AUTO 1 % (0-2); EOSINOPHILS ABSOLUTE AUTO 0.14 K/mm3 (0.00-0.68); EOSINOPHILS PERCENT AUTO 1 % (0-6); Hematocrit 32.5 % (37.0-53.0); Hemoglobin 9.9 g/dL (13.5-17.5); IMMATURE GRAN ABSOLUTE AUTO 0.06 K/mm3 (0.00-0.10); IMMATURE GRAN PERCENT AUTO 1 % (0-1); LYMPHOCYTES ABSOLUTE AUTO 2.64 K/mm3 (0.84-5.20); LYMPHOCYTES PERCENT AUTO 25 % (21-46); MONOCYTES ABSOLUTE AUTO 1.15 K/mm3 (0.16-1.47); MONOCYTES PERCENT AUTO 11 % (4-13); Mean Corpuscular HGB 25.8 pg (26.0-34.0); Mean Corpuscular HGB Conc 30.5 g/dL (31.5-36.5); Mean Corpuscular Volume 85 fL (80-100); Mean Platelet Volume 10.4 fL (9.1-12.4); NEUTROPHILS ABSOLUTE AUTO 6.41 K/mm3 (1.96-9.15); NEUTROPHILS PERCENT AUTO 61 % (41-73); NRBC ABSOLUTE 0.16 K/mm3 (0.00-0.02); NRBC Auto 1.5 /100 WBC (0.0-0.2); Platelet Count 356 K/mm3 (150-400); RDW Coefficient Variation 18.5 % (11.7-14.2); RDW Standard Deviation 55.6 fL (35.1-46.3); Red Blood Cell Count 3.83 M/mm3 (4.30-5.90); White Blood Cell Count 10.46 K/mm3 (4.00-11.30)
[2024-01-11 04:03] LABS: Bun/Creatinine Ratio 15.5 (12.0-20.0); Calcium, Blood 8.3 mg/dL (8.5-10.1); Creatinine, Blood 1.03 mg/dL (0.60-1.20); Potassium, Blood 4.1 mmol/L (3.5-5.5)
[2024-01-11 04:04] VITALS: BP 94/76
--- NOTE | 2024-01-11 04:52 | NUR ---
SHIFT SUMMARY NO ACUTE CHANGES OVERNIGHT. SEE PREVIOUS NOTE. VITALS REMAIN UNCHANGED. MAP >65. PT IND WITH ADL'S. REMAINS ON RA. BED IN LOWEST POSITION AND CALL LIGHT WITHIN REACH. THIS RN WILL REPORT TO ONCOMING DAYSHIFT RN.
[2024-01-11] MEDS ORDERED: Omeprazole 20 MG CapCR PO SCH (06:00)
[2024-01-11 07:41] VITALS: BP 93/74
[2024-01-11] MEDS ORDERED: Potassium Chloride 20 MEQ TabCR PO SCH (08:00)
[2024-01-11 08:47] VITALS: BP 102/84
[2024-01-11] MEDS ORDERED: Magnesium Oxide 400 MG Tab PO SCH (09:00)
[2024-01-11] MEDS ORDERED: Metoprolol Succinate 25 MG TABCR PO SCH (09:00)
[2024-01-11] MEDS ORDERED: Bumetanide 1 MG Tab PO SCH (09:00)
[2024-01-11] MEDS ORDERED: Rivaroxaban 10 MG Tab PO SCH (09:00)
[2024-01-11] MEDS ORDERED: Spironolactone 12.5 MG TAB PO SCH (09:00)
[2024-01-11] MEDS ORDERED: Folic Acid 400 MCG TAB PO SCH (09:00)
[2024-01-11] MEDS ORDERED: Multivitamins/Minerals TAB PO SCH (09:00)
[2024-01-11] MEDS ORDERED: Digoxin 0.125 MG Tab PO SCH (09:00)
[2024-01-11 11:18] VITALS: BP 101/75
[2024-01-11 15:42] VITALS: BP 97/72
--- NOTE | 2024-01-11 16:44 | NUR ---
SHIFT SUMMARY PT IS A&OX4, IND IN THE ROOM, AND CALLS APPROPRAITELY. DR. HERNANDEZ WAS CALLED ABOUT THE PT'S CONSULT AND HE STATED HE WAS AWARE. THE PT'S VITAL SIGNS ARE STABLE, W/ HIS BLOOD PRESSURE SOFT. SBP 90'S-100'S, MAP >65.A FLUID RESTIRICTION OF 2L WAS STARTED. ON TELE HE IS ST 100'S-110'S. THE PT REMAINS ON RA W/O ANY SOB. HE HAS HAD NO ACUTE EVENTS THIS SHIFT. SEE NOTES FOR UPDATES.
[2024-01-11] MEDS ORDERED: Vancomycin HCL 1,000 MG in NS 100 ML IV SCH (18:00)
[2024-01-11 20:23] VITALS: BP 104/82
[2024-01-12 00:29] VITALS: BP 93/70
[2024-01-12 04:41] LABS: BASOPHILS ABSOLUTE AUTO 0.06 K/mm3 (0.00-0.23); BASOPHILS PERCENT AUTO 1 % (0-2); EOSINOPHILS ABSOLUTE AUTO 0.17 K/mm3 (0.00-0.68); EOSINOPHILS PERCENT AUTO 2 % (0-6); Hematocrit 32.2 % (37.0-53.0); IMMATURE GRAN ABSOLUTE AUTO 0.05 K/mm3 (0.00-0.10); IMMATURE GRAN PERCENT AUTO 1 % (0-1); LYMPHOCYTES ABSOLUTE AUTO 2.97 K/mm3 (0.84-5.20); LYMPHOCYTES PERCENT AUTO 29 % (21-46); MONOCYTES ABSOLUTE AUTO 1.19 K/mm3 (0.16-1.47); MONOCYTES PERCENT AUTO 12 % (4-13); Mean Corpuscular HGB 25.9 pg (26.0-34.0); Mean Corpuscular HGB Conc 31.1 g/dL (31.5-36.5); Mean Corpuscular Volume 83 fL (80-100); Mean Platelet Volume 10.2 fL (9.1-12.4); NEUTROPHILS ABSOLUTE AUTO 5.82 K/mm3 (1.96-9.15); NEUTROPHILS PERCENT AUTO 57 % (41-73); Platelet Count 334 K/mm3 (150-400); RDW Coefficient Variation 18.2 % (11.7-14.2); RDW Standard Deviation 54.9 fL (35.1-46.3); Red Blood Cell Count 3.86 M/mm3 (4.30-5.90); White Blood Cell Count 10.26 K/mm3 (4.00-11.30)
[2024-01-12 05:04] LABS: Albumin, Blood 2.4 g/dL (3.4-5.0); Albumin/Globulin Ratio 0.6 (0.8-1.8); Bun/Creatinine Ratio 23.9 (12.0-20.0); Calcium, Blood 8.6 mg/dL (8.5-10.1); Creatinine, Blood 0.92 mg/dL (0.60-1.20); Globulin, Blood 3.7 g/dL (2.2-4.0); Potassium, Blood 3.7 mmol/L (3.5-5.5); Total Protein, Blood 6.1 g/dL (6.4-8.2)
--- NOTE | 2024-01-12 05:07 | NUR ---
SHIFT SUMMARY. SHIFT HAS BEEN UNREMARKABLE THUS FAR. PT AOX4, PLEASANT, COOPERATIVE WITH CARE, CALLS APPROPRIATELY, ABLE TO MAKE NEEDS KNOWN. HAS SLEPT THROUGHOUT MOST OF SHIFT THUS FAR. INDEPENDENT WITHIN ROOM, NOTIFIES STAFF UPON URINAL NEEDING EMPTIED FOR CHARTING PURPOSES. TELE ON THROUGHOUT SHIFT, NO ACUTE CHANGES OR EVENTS. VITALS HAVE BEEN STABLE. HAS DENIED PAIN OF ANY KIND THROUGHOUT SHIFT. BED LOCKED IN LOWEST POSTIION. CALL LIGHT LEFT WTIHIN REACH.
[2024-01-12 07:26] VITALS: BP 93/72
[2024-01-12 11:28] VITALS: BP 95/70
--- NOTE | 2024-01-12 12:42 | NUR ---
MORNING SUMMARY PT IS A&OX4, IND IN THE ROOM, AND CAN MAKE HIS NEEDS KNOWN. HE HAS BEEN GOOD ABOUT USING THE URINAL TO MEASURE HIS OUTPUT. HE WILL USE IT AND LEAVE IT IN THE BATHROOM SINK. ON TELE THE PT HAS SUSTAINED ST 100'S-110'S ON TELE. BP IS SOFT BUT STABLE. HE REMAINS ON RA W/ SP02 >95%; HE DENIES SOB. THE PT MOANS, AND GROANS BUT WHEN ASKED HOW HE IS FEELING OR IF ANYTHING IS WRONG HE STATES HE IS FINE. HE IS PALE IN COLOR AND LOOKS VERY FATIGUED, PROVIDERS AWARE. WE HAVE THE PT ON A 2L FLUID RESTRICTION AND THE PT HAS HAD 885CC IN THIS MORNING.NO ACUTE EVENTS THIS SHIFT.
--- NOTE | 2024-01-12 13:06 | NUR ---
REPORT GIVEN TO ALEC DASILVA AND PT WILL TX TO 334.
--- NOTE | 2024-01-12 14:49 | NUR ---
1345-TRANSFER TO MEDCIAL FLOOR. PT ARRIVED IN STBABLE CONDITION AFTER THIS RN RECEIVED REPORT FROM PCU 19 NURSE, BRENDA.
[2024-01-12 15:24] VITALS: BP 98/79
[2024-01-12] MEDS ORDERED: NS 250 ML IV PRN (15:35)
--- NOTE | 2024-01-12 17:25 | NUR ---
SUMMARY- PT AAOX4. INDEPENDENT IN ROOM. NO ACUTE EVENTS SINCE PT ARRIVED ON THE MEDICAL FLOOR. PT HAS HAD ZERO COMPLAINTS. PT IS ADHERING TO HIS FLUID RESTRICTION.
[2024-01-12 17:41] LABS: Vancomycin, Trough 17.5 ug/mL (5.0-10.0)
[2024-01-12 19:35] VITALS: BP 109/82
--- NOTE | 2024-01-13 05:04 | NUR ---
SHIFT SUMMARY PATIENT WAS AWAKE LATE, REQUESTING FOOD OFTEN. TELE ST AT 115. 1 OF HIS 2 SALINE LOCK NEED TO BE DC'D D/T INFILTRATION. FLUID RESTRICTION MAINTAINED.
[2024-01-13 05:12] VITALS: BP 96/83
[2024-01-13 05:32] LABS: BASOPHILS ABSOLUTE AUTO 0.06 K/mm3 (0.00-0.23); BASOPHILS PERCENT AUTO 1 % (0-2); EOSINOPHILS ABSOLUTE AUTO 0.19 K/mm3 (0.00-0.68); EOSINOPHILS PERCENT AUTO 2 % (0-6); Hematocrit 32.2 % (37.0-53.0); Hemoglobin 10.2 g/dL (13.5-17.5); IMMATURE GRAN ABSOLUTE AUTO 0.06 K/mm3 (0.00-0.10); IMMATURE GRAN PERCENT AUTO 1 % (0-1); LYMPHOCYTES ABSOLUTE AUTO 3.24 K/mm3 (0.84-5.20); LYMPHOCYTES PERCENT AUTO 27 % (21-46); MONOCYTES PERCENT AUTO 12 % (4-13); Mean Corpuscular HGB 26.2 pg (26.0-34.0); Mean Corpuscular HGB Conc 31.7 g/dL (31.5-36.5); Mean Corpuscular Volume 83 fL (80-100); Mean Platelet Volume 10.4 fL (9.1-12.4); NEUTROPHILS ABSOLUTE AUTO 7.06 K/mm3 (1.96-9.15); NEUTROPHILS PERCENT AUTO 59 % (41-73); NRBC ABSOLUTE 0.23 K/mm3 (0.00-0.02); NRBC Auto 1.9 /100 WBC (0.0-0.2); Platelet Count 336 K/mm3 (150-400); RDW Coefficient Variation 18.2 % (11.7-14.2); RDW Standard Deviation 53.6 fL (35.1-46.3); Red Blood Cell Count 3.89 M/mm3 (4.30-5.90); White Blood Cell Count 12.01 K/mm3 (4.00-11.30)
[2024-01-13 06:05] LABS: Albumin, Blood 2.5 g/dL (3.4-5.0); Albumin/Globulin Ratio 0.7 (0.8-1.8); Bilirubin, Total 0.7 mg/dL (0.1-1.0); Bun/Creatinine Ratio 25.5 (12.0-20.0); Calcium, Blood 8.6 mg/dL (8.5-10.1); Creatinine, Blood 1.02 mg/dL (0.60-1.20); Globulin, Blood 3.8 g/dL (2.2-4.0); Potassium, Blood 3.7 mmol/L (3.5-5.5); Total Protein, Blood 6.3 g/dL (6.4-8.2)
--- NOTE | 2024-01-13 06:23 | NUR ---
SHIFT SUMMARY PATIENT WAS AWAKE UNTIL AFTER MIDNIGHT, HAS MANY FOOD REQUESTS, LIMITED FLUIDS TO LESS THAT 700. TELT ST @ 115. REMAINED COMPLIANT REGARDING CARE.
[2024-01-13 07:26] VITALS: BP 97/77
[2024-01-13 15:52] VITALS: BP 92/82
--- NOTE | 2024-01-13 17:35 | NUR ---
SUMMARY PT IS ALERT AND ORIENTED X4. ABLE TO MAKE NEEDS KNOWN. 2 LITER FLUID RESTRICTION CONTINUED. NO ACUTE CHANGES THIS SHIFT. IV ANTIBIOTICS CONTINUED. INDEPENDENT IN THE ROOM. R/A
[2024-01-13 18:20] LABS: Vancomycin, Trough 18.8 ug/mL (5.0-10.0)
[2024-01-13 19:33] VITALS: BP 112/73
[2024-01-13 20:08] VITALS: BP 103/85
[2024-01-14 05:45] VITALS: BP 95/70
[2024-01-14 05:56] LABS: BASOPHILS ABSOLUTE AUTO 0.06 K/mm3 (0.00-0.23); BASOPHILS PERCENT AUTO 1 % (0-2); EOSINOPHILS ABSOLUTE AUTO 0.19 K/mm3 (0.00-0.68); EOSINOPHILS PERCENT AUTO 2 % (0-6); Hematocrit 32.8 % (37.0-53.0); Hemoglobin 10.1 g/dL (13.5-17.5); IMMATURE GRAN ABSOLUTE AUTO 0.05 K/mm3 (0.00-0.10); IMMATURE GRAN PERCENT AUTO 0 % (0-1); LYMPHOCYTES ABSOLUTE AUTO 2.65 K/mm3 (0.84-5.20); LYMPHOCYTES PERCENT AUTO 23 % (21-46); MONOCYTES ABSOLUTE AUTO 1.28 K/mm3 (0.16-1.47); MONOCYTES PERCENT AUTO 11 % (4-13); Mean Corpuscular HGB 25.3 pg (26.0-34.0); Mean Corpuscular HGB Conc 30.8 g/dL (31.5-36.5); Mean Corpuscular Volume 82 fL (80-100); Mean Platelet Volume 10.3 fL (9.1-12.4); NEUTROPHILS ABSOLUTE AUTO 7.56 K/mm3 (1.96-9.15); NEUTROPHILS PERCENT AUTO 64 % (41-73); NRBC Auto 0.8 /100 WBC (0.0-0.2); Platelet Count 311 K/mm3 (150-400); RDW Coefficient Variation 18.2 % (11.7-14.2); RDW Standard Deviation 54.3 fL (35.1-46.3); Red Blood Cell Count 3.99 M/mm3 (4.30-5.90); White Blood Cell Count 11.79 K/mm3 (4.00-11.30)
[2024-01-14 06:35] LABS: Albumin, Blood 2.5 g/dL (3.4-5.0); Albumin/Globulin Ratio 0.7 (0.8-1.8); Bilirubin, Total 0.7 mg/dL (0.1-1.0); Bun/Creatinine Ratio 28.4 (12.0-20.0); Calcium, Blood 8.6 mg/dL (8.5-10.1); Creatinine, Blood 0.88 mg/dL (0.60-1.20); Globulin, Blood 3.8 g/dL (2.2-4.0); Potassium, Blood 3.4 mmol/L (3.5-5.5); Total Protein, Blood 6.3 g/dL (6.4-8.2)
[2024-01-14 07:41] VITALS: BP 93/77
[2024-01-14] MEDS ORDERED: AMOX875 PO (11:39)
--- NOTE | 2024-01-14 15:20 | NUR ---
PT AOX4 AND COOPERATIVE OF CARE. PT IS ROOM AIR AND INDEPENDENT IN ROOM. DISCHARGED AT 1305 WITH ALL PAPERWORK REVIEWED AND EDUCATIONAL MATERIAL SENT WITH PT. ESCORTED TO N ENTRANCE VIA WHEELCHAIR. ALL PERSONAL BELONGINGS WITH PT. TRANSPORTED HOME VIA FRIEND IN CAR.
[2024-01-20] MEDS ORDERED: SPIR25 PO (10:50)
== END 2024-01-14 13:21 | disposition home or self-care (01) | DRG 871 ==
LOC: ER 14:28 → PCU 20:49 → MEDS 20:49 → PCU 21:18 → MEDS 01-12 13:34
PROVIDERS: Family Medicine; Student in an Organized Health Care Education/Training Program; ADMIT Internal Medicine
DX: A41.9 Sepsis, unspecified organism (principal); I50.23 Acute on chronic systolic (congestive) heart failure; J85.0 Gangrene and necrosis of lung; I42.6 Alcoholic cardiomyopathy; E87.1 Hypo-osmolality and hyponatremia; I82.C11 Acute embolism and thrombosis of right internal jugular vein; R65.20 Severe sepsis without septic shock; D64.9 Anemia, unspecified; F10.11 Alcohol abuse, in remission; Z86.711 Personal history of pulmonary embolism; Z79.01 Long term (current) use of anticoagulants; Z87.891 Personal history of nicotine dependence
CPT/HCPCS: 0241U; 36415; 71046; 71250; 80048; 80053; 80202; 83605; 83880; 84145; 85025; 87040; 87070; 87205; 93005; 93010; 96365; 96366; 96367; 99285-25; A9270; J2185; J3370; J7050

== ENCOUNTER 2024-01-21 19:55 | Inpatient (IN) | payer OTHER ==
[~2024-01-21] VITALS: Ht 175.3 cm; Wt 69.4 kg
[~2024-01-21 19:55] MED LIST changes: +AMOX250CH PO; +AMOX875 PO; +DIGOX125 MC1 PO; +GABA300 PO
[2024-01-21 21:02] LABS: BASOPHILS ABSOLUTE AUTO 0.02 K/mm3 (0.00-0.23); BASOPHILS PERCENT AUTO 0 % (0-2); EOSINOPHILS ABSOLUTE AUTO 0.01 K/mm3 (0.00-0.68); EOSINOPHILS PERCENT AUTO 0 % (0-6); Hematocrit 36.8 % (37.0-53.0); Hemoglobin 11.2 g/dL (13.5-17.5); IMMATURE GRAN ABSOLUTE AUTO 0.13 K/mm3 (0.00-0.10); IMMATURE GRAN PERCENT AUTO 1 % (0-1); LYMPHOCYTES ABSOLUTE AUTO 2.33 K/mm3 (0.84-5.20); LYMPHOCYTES PERCENT AUTO 11 % (21-46); MONOCYTES PERCENT AUTO 6 % (4-13); Mean Corpuscular HGB 25.1 pg (26.0-34.0); Mean Corpuscular HGB Conc 30.4 g/dL (31.5-36.5); Mean Corpuscular Volume 82 fL (80-100); Mean Platelet Volume 10.5 fL (9.1-12.4); NEUTROPHILS ABSOLUTE AUTO 17.87 K/mm3 (1.96-9.15); NEUTROPHILS PERCENT AUTO 82 % (41-73); NRBC ABSOLUTE 0.05 K/mm3 (0.00-0.02); NRBC Auto 0.2 /100 WBC (0.0-0.2); Platelet Count 380 K/mm3 (150-400); RDW Coefficient Variation 18.5 % (11.7-14.2); RDW Standard Deviation 54.1 fL (35.1-46.3); Red Blood Cell Count 4.47 M/mm3 (4.30-5.90); White Blood Cell Count 21.76 K/mm3 (4.00-11.30)
[2024-01-21 21:15] LABS: Albumin/Globulin Ratio 0.7 (0.8-1.8); Bilirubin, Total 0.9 mg/dL (0.1-1.0); Bun/Creatinine Ratio 35.5 (12.0-20.0); Calcium, Blood 9.4 mg/dL (8.5-10.1); Creatinine, Blood 0.84 mg/dL (0.60-1.20); Globulin, Blood 4.4 g/dL (2.2-4.0); Potassium, Blood 3.8 mmol/L (3.5-5.5); Total Protein, Blood 7.4 g/dL (6.4-8.2)
[2024-01-21] MEDS ORDERED: Bumetanide 0.25 MG/ML 10ML Vial IV ONE (23:50)
[2024-01-22] VITALS (7 sets, daily range): BP systolic 93–100; BP diastolic 66–84
[2024-01-22 01:07] LABS: Magnesium, Blood 1.9 mg/dL (1.6-2.4)
[2024-01-22] MEDS ORDERED: Acetaminophen 325 MG TABLET PO PRN (02:15)
[2024-01-22 02:47] LABS: Influenza A, PCR NEGATIVE (NEGATIVE); Influenza B, PCR NEGATIVE (NEGATIVE); Resp Syncytial Virus, PCR NEGATIVE (NEGATIVE); SARS-Cov-2 (COVID-19) PCR, MMC NEGATIVE (NEGATIVE)
--- NOTE | 2024-01-22 04:05 | NUR ---
PT ARRIVED TO UNIT AT APPROXIMATELY 0300 FROM ER. PT IS ALERT AND ORIENTED X 4, COOPERATIVE WITH CARE AND ABLE TO MAKE NEEDS KNOWN. ALFIE. PT IS ON RA AND MAINTAINING 02 SATURATION ABOVE 95%. PT SAID HE GETS SOB WHEN HE LAYS DOWN FLAT AND OCCASIONALLY WITH EXERTION. PT'S HR IS ST 110'S, BP STABLE. -SEE VITALS-PT DENIES NAUSEA & ABDOMINAL PAIN. PT IS CONTINENT OF BLADDER AND BOWELS. HE SAID HIS LAST BOWEL MOVEMENT WAS THE MORNING OF 01/21/24 AND IT'S NORMAL FOR HIM TO HAVE A BOWEL MOVEMENT ONCE A DAY. PT HAS HAD SEVERAL SNACKS SINCE ARRIVAL, AND TOLERATED WELL. PT CAN USE URINAL INDEPENDENTLY AT BEDSIDE. PT HAS NOT URINATED SINCE HE ARRIVED TO UNIT. EDENA TO BILATERAL LOWER EXTREMITIES. EDEMA WORSE ON L LEG THAN RIGHT, WHICH PT SAID IS NORMAL FOR HIM. SWELLING OF L LEG IS 3+ AND GOES UP TO HIS MID THIGH, SLIGHT PITTING IN SOME AREAS. SWELLING TO R LEG IS 2+, IT GOES UP TO RIGHT ABOVE HIS R KNEE. PT SAID EDEMA TO R LEG HAS COME DOWN SINCE HE'S BEEN AT THE HOSPITAL TODAY. HE SAID SWELLING TO BOTH LEGS IS BETTER THAN IT WAS YESTERDAY. HE SAID YESTERDAY EDEMA WAS ALL THE WAY UP TO HIS GROIN/TESTICLES. PT HAS DENIED DIZZINESS AND LIGHTHEDEDNESS SINCE ARRIVAL TO UNIT. IV TO R FA IS PATENT/FLUSHED/SALINE LOCKED. PT CURRENTLY EATING AND SITTING UP STRAIGHT IN BED WHILE WATCHING TV. CALL LIGHT WITHIN REACH.
[2024-01-22] MEDS ORDERED: Digoxin 0.25 MG/ML 2ML Amp IV ONE (04:10)
[2024-01-22 04:14] LABS: BASOPHILS ABSOLUTE AUTO 0.02 K/mm3 (0.00-0.23); BASOPHILS PERCENT AUTO 0 % (0-2); EOSINOPHILS ABSOLUTE AUTO 0.02 K/mm3 (0.00-0.68); EOSINOPHILS PERCENT AUTO 0 % (0-6); Hematocrit 36.1 % (37.0-53.0); Hemoglobin 10.8 g/dL (13.5-17.5); IMMATURE GRAN ABSOLUTE AUTO 0.06 K/mm3 (0.00-0.10); IMMATURE GRAN PERCENT AUTO 0 % (0-1); LYMPHOCYTES ABSOLUTE AUTO 3.07 K/mm3 (0.84-5.20); LYMPHOCYTES PERCENT AUTO 21 % (21-46); MONOCYTES ABSOLUTE AUTO 1.03 K/mm3 (0.16-1.47); MONOCYTES PERCENT AUTO 7 % (4-13); Mean Corpuscular HGB 24.9 pg (26.0-34.0); Mean Corpuscular HGB Conc 29.9 g/dL (31.5-36.5); Mean Corpuscular Volume 83 fL (80-100); Mean Platelet Volume 10.9 fL (9.1-12.4); NEUTROPHILS ABSOLUTE AUTO 10.72 K/mm3 (1.96-9.15); NEUTROPHILS PERCENT AUTO 72 % (41-73); NRBC ABSOLUTE 0.06 K/mm3 (0.00-0.02); NRBC Auto 0.4 /100 WBC (0.0-0.2); Platelet Count 398 K/mm3 (150-400); RDW Coefficient Variation 18.5 % (11.7-14.2); RDW Standard Deviation 54.5 fL (35.1-46.3); Red Blood Cell Count 4.33 M/mm3 (4.30-5.90); White Blood Cell Count 14.92 K/mm3 (4.00-11.30)
[2024-01-22 04:35] LABS: Albumin, Blood 2.8 g/dL (3.4-5.0); Albumin/Globulin Ratio 0.7 (0.8-1.8); Bilirubin, Total 0.8 mg/dL (0.1-1.0); Bun/Creatinine Ratio 32.7 (12.0-20.0); Calcium, Blood 9.1 mg/dL (8.5-10.1); Creatinine, Blood 0.98 mg/dL (0.60-1.20); Potassium, Blood 3.2 mmol/L (3.5-5.5); Total Protein, Blood 6.8 g/dL (6.4-8.2)
[2024-01-22] MEDS ORDERED: Potassium Chloride 20 MEQ TabCR PO ONE (05:00)
[2024-01-22] MEDS ORDERED: Metoprolol Succinate 25 MG TABCR PO SCH (09:00)
[2024-01-22] MEDS ORDERED: Digoxin 50 mcg/ml 1 ml Dose PO SCH (09:00)
[2024-01-22] MEDS ORDERED: Lactobacil 2-S.Thermo-Bifido 1 1 Cap PO SCH (09:00)
[2024-01-22] MEDS ORDERED: Bumetanide 0.25 MG/ML 4ML ViaL IV SCH (09:00)
[2024-01-22] MEDS ORDERED: Enoxaparin 40 MG/0.4 ML SYR SC SCH (09:00)
[2024-01-22] MEDS ORDERED: Digoxin 0.125 MG Tab PO SCH (09:00)
[2024-01-22] MEDS ORDERED: Spironolactone 25 MG Tab PO SCH (09:00)
[2024-01-22] MEDS ORDERED: Rivaroxaban 10 MG Tab PO SCH ×2 (09:00)
[2024-01-22] MEDS ORDERED: Spironolactone 12.5 MG TAB PO SCH (09:00)
[2024-01-22] MEDS ORDERED: Digoxin 0.25 MG/ML 2ML Amp IV SCH (10:30)
--- NOTE | 2024-01-22 13:29 | NUR ---
MET WITH COLLEEN. HE REPORTED THAT HE WAS STARTING TO FEEL BETTER FROM WHEN HE CAME IN. HE REPORTED PAIN, NAUSEA, AND SOB AT ADMIT. HE DISCUSSED HIS MEDICAL PROGRESSION RECENTLY. HE REPORTED THAT HE WAS INTUBATED FOR ABOUT A WEEK AND THAT HE WAS TRANSFERED TO ANOTHER HOSPITAL FOR A HIGHER LEVEL OF CARE. HE STATED THAT THEY HAD PUT A DRAIN IN HIS LUNG AND THAT THEY REMOVED IT PRIOR TO DISCHARGE. HE STATED THAT HE HAS BEEN TAKING DIURETICS AT HOME, BUT RECENTLY RAN OUT OF HIS SPIRONOLACTONE PRESCRIPTION, AND HE COULD NOT GET IT FILLED DUE TO INSURANCE NOT PAYING FOR IT FOR A FEW MORE DAYS, RELAYED THIS INFORMATION TO CASE MANAGMENT. PATIENT REPORTED THAT HE WAS IN THE PROCESS OF GETTING HIS FMLA WHEN HE ENDED UP INTUBATED AND HE HAD SOME ISSUES WITH WATER AND POWER GETTING SHUT OFF. HE REPORTED THAT THOSE THINGS ARE GETTING TURNED BACK ON AND THAT HE IS GETTING THINGS BACK IN ORDER AT HOME. HE REPORTED THAT THE PROVIDERS HAVE BEEN "DOOM AND GLOOM" BUT EVERYTHING WORKED OUT LAST TIME SO HE IS HOPEFUL THAT THINGS WILL CONTINUE TO BE OK WITH HIM. PC WILL REMAIN AVALIABLE.
[2024-01-22] MEDS ORDERED: Rivaroxaban 2.5 MG TABLET PO SCH (18:00)
--- NOTE | 2024-01-22 18:26 | NUR ---
SHIFT SUMMARY; ASSUMED CARE AT 0700. ASSISTED STUDENT NURSE WITH CARE. A/A/OX4. MOVES SELF IN BED AND USES URINAL WITHOUT DIFFICULTY. VSS, MEDS PER EMAR. PLEASANT AND COOPERATIVE WITH CARE. NO ACUTE CHANGES, WILL CONTINUE TO MONITOR AND TREAT UNTIL CHANGE OF SHIFT.
--- NOTE | 2024-01-22 20:54 | NUR ---
PT IS ALERT AND ORIENTED X 4, COOPERATIVE WITH CARE AND ABLE TO MAKE NEEDS KNOWN. HE IS ON RA AND MAINTAINING 02 SATURATION ABOVE 95%, SOB W/EXERTION. PT SAID HE GETS SOB WHEN HE LAYS FLAT. HR ST 100'S-110'S, HE DENIES CHEST PAIN/PRESSURE. PT HAD A SNACK TONIGHT OF HALF A SANDWICH W/CHEESE AND TOLERATED WELL. NO BOWEL MOVEMENT YET THIS SHIFT. PT USES URINAL INDEPENDENTLY. I&O'S MEASURED AND CHARTED. EDEMA TO BLE HAS IMPROVED SINCE YESTERDAY BUT IS STILL PRESENT. PT SAID HIS LEFT LEG IS EASIER TO MOVE THAN IT WAS YESTERDAY. 20G TO R FA PATENT,FLUSHED, SALINE LOCKED. PT RESTING IN BED AND CALL LIGHT WITHIN REACH.
[2024-01-23 03:39] VITALS: BP 98/71
--- NOTE | 2024-01-23 06:31 | NUR ---
NO ACUTE CHANGES, SEE PREVIOUS NOTE.
[2024-01-23 07:24] VITALS: BP 109/82
[2024-01-23] MEDS ORDERED: Spironolactone 25 MG Tab PO SCH (09:00)
[2024-01-23] MEDS ORDERED: Folic Acid 400 MCG TAB PO SCH (09:00)
[2024-01-23] MEDS ORDERED: Magnesium Oxide 400 MG Tab PO SCH (09:00)
[2024-01-23] MEDS ORDERED: Digoxin 0.125 MG Tab PO SCH (09:00)
[2024-01-23 15:16] VITALS: BP 99/80
--- NOTE | 2024-01-23 16:22 | NUR ---
MET WITH PATIENT TO REASSESS SYMPTOMS. HE REPORTED DECREASED SWELLING IN HIS LEG. HE REPORTED THAT NAUSEA AND SOB WAS RESOLVED. WE DISCUSSED PROGNOSIS AND MEDICAL HISTORY. HE REPORTED HE UNDERSTANDS HE IS "FALLING APART" I IMPRESSED THE IMPROTANCE OF BEING CONSISTANT WITH MEDICATION, AND FOLLOW UP APTS. WE DISCUSSED CODE STATUS. HE REPORTED THAT HE WANTS TO BE FULL CODE.
--- NOTE | 2024-01-23 16:56 | NUR ---
SHIFT SUMMARY; ASSUMED CARE AT 0700, A/A/OX4 DURING SHIFT. INDEPENDANT IN ROOM. PLEASANT AND COOPERATIVE WITH CARE. VSS, L/S CLEAR T/O. STATUS CHANGED TO MEDICAL WITH TELE. REPORT GIVEN TO MEDICAL FLOOR RN FOR IN HOUSE TRANSFER IN LATE AFTERNOON.
--- NOTE | 2024-01-23 16:59 | NUR ---
TRANSFER NOTE: PT ARRIVED TO THE UNIT VIA WHEELCHAIR. HE WAS ABLE TO SELF TRANSFER TO THE BED. IV ANTIBIOTICS INFUSING. HE WAS SETTLED IN THE ROOM AND NEEDS WERE MET. SKIN ASSESSED WITH MARVIN DASILVA. AWAITING RESPONSE FROM DR. CHENEY ON NEED FOR CONTINIOUS BI OX. NO SIGNS OR SYMPTOMS OF DISTRESS. PLAN OF CARE ONGOING.
[2024-01-23 20:01] VITALS: BP 96/76
[2024-01-23] MEDS ORDERED: TraZODone HCl 100 MG Tab PO SCH (21:00)
[2024-01-24 03:04] VITALS: BP 92/69
[2024-01-24 04:50] LABS: BASOPHILS ABSOLUTE AUTO 0.02 K/mm3 (0.00-0.23); BASOPHILS PERCENT AUTO 0 % (0-2); EOSINOPHILS ABSOLUTE AUTO 0.24 K/mm3 (0.00-0.68); EOSINOPHILS PERCENT AUTO 3 % (0-6); Hematocrit 34.2 % (37.0-53.0); Hemoglobin 10.4 g/dL (13.5-17.5); IMMATURE GRAN ABSOLUTE AUTO 0.04 K/mm3 (0.00-0.10); IMMATURE GRAN PERCENT AUTO 0 % (0-1); LYMPHOCYTES ABSOLUTE AUTO 2.43 K/mm3 (0.84-5.20); LYMPHOCYTES PERCENT AUTO 27 % (21-46); MONOCYTES ABSOLUTE AUTO 0.68 K/mm3 (0.16-1.47); MONOCYTES PERCENT AUTO 7 % (4-13); Mean Corpuscular HGB 24.9 pg (26.0-34.0); Mean Corpuscular HGB Conc 30.4 g/dL (31.5-36.5); Mean Corpuscular Volume 82 fL (80-100); Mean Platelet Volume 10.5 fL (9.1-12.4); NEUTROPHILS ABSOLUTE AUTO 5.77 K/mm3 (1.96-9.15); NEUTROPHILS PERCENT AUTO 63 % (41-73); NRBC ABSOLUTE 0.02 K/mm3 (0.00-0.02); NRBC Auto 0.2 /100 WBC (0.0-0.2); Platelet Count 331 K/mm3 (150-400); RDW Standard Deviation 52.7 fL (35.1-46.3); Red Blood Cell Count 4.18 M/mm3 (4.30-5.90); White Blood Cell Count 9.18 K/mm3 (4.00-11.30)
[2024-01-24 05:10] LABS: Albumin, Blood 2.3 g/dL (3.4-5.0); Albumin/Globulin Ratio 0.7 (0.8-1.8); Bilirubin, Total 0.7 mg/dL (0.1-1.0); Bun/Creatinine Ratio 33.6 (12.0-20.0); Calcium, Blood 8.9 mg/dL (8.5-10.1); Creatinine, Blood 0.95 mg/dL (0.60-1.20); Globulin, Blood 3.4 g/dL (2.2-4.0); Potassium, Blood 3.2 mmol/L (3.5-5.5); Total Protein, Blood 5.7 g/dL (6.4-8.2)
--- NOTE | 2024-01-24 06:26 | NUR ---
SHIFT SUMMARY PT. IS A&O X4, ABLE TO MAKE HIS NEEDS KNOWN. PT. DENIES PAIN, SOB, OR DISCOMFORT. PT. REPORTS OCCATIONAL DRY COUGHING. LS CLEAR UL'S AND DIMINISHED LL'S. TELLY:SINUS TACHYCARDIA 102. PT HAS BEEN RESTING T/O THIS SHIFT, AND COOP WITH CARE T/O THE NIGHT. NO ACUTE EVENTS/DISTRESS NOTED/REPORTED. WILL HAND OFF TO THE INCOMING SHIFT NURSE. BED AT THE LOWEST POSITION, CALL LIGHT WITHIN REACH.
[2024-01-24 07:19] VITALS: BP 94/81
[2024-01-24] MEDS ORDERED: Potassium Chloride 20 MEQ TabCR PO ONE (15:10)
[2024-01-24 15:24] VITALS: BP 94/82
[2024-01-24 15:49] LABS: Magnesium, Blood 2.1 mg/dL (1.6-2.4); Percent Saturation 5.6 % (20.0-50.0)
[2024-01-24 16:07] LABS: Phosphorus, Blood 3.9 mg/dL (2.5-4.9)
--- NOTE | 2024-01-24 17:58 | NUR ---
DISCHARGE NOTE: DISCUSSED DISCHARGE WITH PATIENT HE HAS NO QUESTIONS OR CONCERNS. CONFIRMED [facility] THAT MEDS COULD BE FILLED TODAY. PATIENT GOT HIMSELF DRESSED AND GATHERED HIS BELONGINGS. PATIENT WAS WHEELED DOWN BY THIS RN. DROPPED OFF WITH SUNSHINE TAXI AND NORTH ENTERANCE OUTSIDE. NO SIGNS OR SYMPTOMS OF DISTRESS DURING DISCHARGE.
== END 2024-01-24 17:26 | disposition home or self-care (01) | DRG 871 ==
LOC: ER 19:55 → PCU 19:56 → ER 01-22 03:00 → PCU 01-22 03:25 → MEDS 01-23 16:41 → ENPENDDIS 01-24 15:45 → MEDS 01-24 17:26
PROVIDERS: Internal Medicine; Nurse Practitioner; Student in an Organized Health Care Education/Training Program; ADMIT Student in an Organized Health Care Education/Training Program
DX: A41.9 Sepsis, unspecified organism (principal); I50.23 Acute on chronic systolic (congestive) heart failure; J85.1 Abscess of lung with pneumonia; I42.6 Alcoholic cardiomyopathy; E87.1 Hypo-osmolality and hyponatremia; E87.20 Acidosis, unspecified; R65.20 Severe sepsis without septic shock; I08.1 Rheumatic disorders of both mitral and tricuspid valves; E87.6 Hypokalemia; K70.30 Alcoholic cirrhosis of liver without ascites; F10.11 Alcohol abuse, in remission; G47.00 Insomnia, unspecified; R79.1 Abnormal coagulation profile; Z71.41 Alcohol abuse counseling and surveillance of alcoholic; Z86.711 Personal history of pulmonary embolism; Z86.718 Personal history of other venous thrombosis and embolism; Z87.891 Personal history of nicotine dependence
CPT/HCPCS: 0241U; 36415; 71046; 80053; 82607; 82728; 82746; 83540; 83550; 83605; 83735; 83880; 84100; 84145; 84484; 85025; 87040; 87070; 87205; 93005; 93010; 94762; 96365; 96366; 96375; 96376; 99285-25; A9270; G0378; J1160; J2185

== ENCOUNTER 2024-03-22 00:52 | Inpatient (IN) | payer OTHER ==
[~2024-03-22] VITALS: Ht 175.3 cm; Wt 60.1 kg
[2024-03-22] VITALS (19 sets, daily range): BP systolic 75–110; BP diastolic 46–87
[~2024-03-22 00:52] MED LIST changes: +LOSA25 PO
[2024-03-22 01:16] LABS: BASOPHILS ABSOLUTE AUTO 0.01 K/mm3 (0.00-0.23); BASOPHILS PERCENT AUTO 0 % (0-2); EOSINOPHILS PERCENT AUTO 0 % (0-6); Hematocrit 37.8 % (37.0-53.0); Hemoglobin 11.5 g/dL (13.5-17.5); IMMATURE GRAN ABSOLUTE AUTO 0.09 K/mm3 (0.00-0.10); IMMATURE GRAN PERCENT AUTO 1 % (0-1); LYMPHOCYTES ABSOLUTE AUTO 1.32 K/mm3 (0.84-5.20); LYMPHOCYTES PERCENT AUTO 10 % (21-46); MONOCYTES ABSOLUTE AUTO 1.03 K/mm3 (0.16-1.47); MONOCYTES PERCENT AUTO 7 % (4-13); Mean Corpuscular HGB 23.7 pg (26.0-34.0); Mean Corpuscular HGB Conc 30.4 g/dL (31.5-36.5); Mean Corpuscular Volume 78 fL (80-100); Mean Platelet Volume 10.8 fL (9.1-12.4); NEUTROPHILS ABSOLUTE AUTO 11.41 K/mm3 (1.96-9.15); NEUTROPHILS PERCENT AUTO 82 % (41-73); NRBC ABSOLUTE 0.13 K/mm3 (0.00-0.02); NRBC Auto 0.9 /100 WBC (0.0-0.2); Platelet Count 206 K/mm3 (150-400); RDW Coefficient Variation 21.2 % (11.7-14.2); RDW Standard Deviation 57.1 fL (35.1-46.3); Red Blood Cell Count 4.86 M/mm3 (4.30-5.90); White Blood Cell Count 13.86 K/mm3 (4.00-11.30)
[2024-03-22 01:29] LABS: Albumin, Blood 2.7 g/dL (3.4-5.0); Albumin/Globulin Ratio 0.7 (0.8-1.8); Bilirubin, Total 2.5 mg/dL (0.1-1.0); Bun/Creatinine Ratio 27.9 (12.0-20.0); Calcium, Blood 8.2 mg/dL (8.5-10.1); Creatinine, Blood 0.79 mg/dL (0.60-1.20); Globulin, Blood 3.7 g/dL (2.2-4.0); Potassium, Blood 3.1 mmol/L (3.5-5.5); Total Protein, Blood 6.4 g/dL (6.4-8.2)
[2024-03-22] MEDS ORDERED: Meropenem 1,000 MG in NS 100 ML IV ONE (01:35)
[2024-03-22] MEDS ORDERED: Potassium Chloride 20 MEQ TabCR PO ONE (01:35)
[2024-03-22 01:59] LABS: International Normalized Ratio 1.53; Prothrombin Time Results 15.9 Sec (9.7-11.5)
[2024-03-22 02:03] LABS: Magnesium, Blood 1.6 mg/dL (1.6-2.4)
[2024-03-22] MEDS ORDERED: Vancomycin HCL 1,250 MG in NS 250 ML IV ONE (02:46)
[2024-03-22] MEDS ORDERED: Acetaminophen 325 MG TABLET PO PRN (02:55)
[2024-03-22] MEDS ORDERED: Ondansetron HCl 2 MG / ML 2ML Vial IV PRN (02:55)
[2024-03-22] MEDS ORDERED: TraZODone HCl 100 MG Tab PO PRN (03:00)
[2024-03-22 03:22] LABS: BASOPHILS ABSOLUTE AUTO 0.01 K/mm3 (0.00-0.23); BASOPHILS PERCENT AUTO 0 % (0-2); EOSINOPHILS ABSOLUTE AUTO 0.01 K/mm3 (0.00-0.68); EOSINOPHILS PERCENT AUTO 0 % (0-6); Hematocrit 32.4 % (37.0-53.0); IMMATURE GRAN ABSOLUTE AUTO 0.07 K/mm3 (0.00-0.10); IMMATURE GRAN PERCENT AUTO 1 % (0-1); LYMPHOCYTES ABSOLUTE AUTO 0.86 K/mm3 (0.84-5.20); LYMPHOCYTES PERCENT AUTO 7 % (21-46); MONOCYTES ABSOLUTE AUTO 0.88 K/mm3 (0.16-1.47); MONOCYTES PERCENT AUTO 7 % (4-13); Mean Corpuscular HGB 23.9 pg (26.0-34.0); Mean Corpuscular HGB Conc 30.9 g/dL (31.5-36.5); Mean Corpuscular Volume 77 fL (80-100); Mean Platelet Volume 10.4 fL (9.1-12.4); NEUTROPHILS ABSOLUTE AUTO 10.55 K/mm3 (1.96-9.15); NEUTROPHILS PERCENT AUTO 85 % (41-73); NRBC ABSOLUTE 0.16 K/mm3 (0.00-0.02); NRBC Auto 1.3 /100 WBC (0.0-0.2); Platelet Count 157 K/mm3 (150-400); RDW Coefficient Variation 21.1 % (11.7-14.2); RDW Standard Deviation 57.9 fL (35.1-46.3); Red Blood Cell Count 4.19 M/mm3 (4.30-5.90); White Blood Cell Count 12.38 K/mm3 (4.00-11.30)
[2024-03-22 04:04] LABS: Albumin, Blood 2.8 g/dL (3.4-5.0); Albumin/Globulin Ratio 0.8 (0.8-1.8); Bilirubin, Total 2.8 mg/dL (0.1-1.0); Bun/Creatinine Ratio 32.3 (12.0-20.0); Calcium, Blood 8.7 mg/dL (8.5-10.1); Creatinine, Blood 0.77 mg/dL (0.60-1.20); Globulin, Blood 3.6 g/dL (2.2-4.0); Magnesium, Blood 1.8 mg/dL (1.6-2.4); Percent Saturation 6.7 % (20.0-50.0); Potassium, Blood 3.5 mmol/L (3.5-5.5); Total Protein, Blood 6.4 g/dL (6.4-8.2)
[2024-03-22] MEDS ORDERED: Iron Dextran 25 MG in NS 50 ML IV ONE (07:40)
[2024-03-22] MEDS ORDERED: Iron Dextran 50 MG / ML 2ML Vial IV ONE (08:00)
[2024-03-22] MEDS ORDERED: Meropenem 1,000 MG in NS 100 ML IV SCH (08:00)
[2024-03-22] MEDS ORDERED: Dose Adjust by Pharmacy XX STA ×2 (08:09→16:26)
[2024-03-22] MEDS ORDERED: Heparin Sodium,Porcine/0.5 NS 500 ML IV SCH (08:10)
[2024-03-22] MEDS ORDERED: Lactobacil 2-S.Thermo-Bifido 1 1 Cap PO SCH (09:00)
[2024-03-22] MEDS ORDERED: Losartan Potassium 25 MG Tab PO SCH ×2 (09:00)
[2024-03-22] MEDS ORDERED: Potassium Chloride 20 MEQ TabCR PO SCH (09:00)
[2024-03-22] MEDS ORDERED: Iron Dextran 975 MG in NS 250 ML IV ONE (09:00)
[2024-03-22] MEDS ORDERED: Magnesium Oxide 400 MG Tab PO SCH (09:00)
[2024-03-22] MEDS ORDERED: Sod Ferric Gluc Complx/Sucrose 125 MG in NS 100 ML IV SCH (09:00)
[2024-03-22] MEDS ORDERED: Spironolactone 25 MG Tab PO SCH (09:00)
[2024-03-22] MEDS ORDERED: Bumetanide 1 MG Tab PO SCH (09:00)
[2024-03-22] MEDS ORDERED: Folic Acid 400 MCG TAB PO SCH (09:00)
[2024-03-22] MEDS ORDERED: Metoprolol Succinate 25 MG TABCR PO SCH ×2 (09:00)
[2024-03-22 09:41] LABS: Hematocrit 38.8 % (37.0-53.0); Hemoglobin 11.5 g/dL (13.5-17.5)
--- NOTE | 2024-03-22 11:36 | NUR ---
PT ADMITTED TO ICU 13 AT 0815 FROM ER. PT IS A/O X4. HAS PAIN IN SHOULDER AND R RIBS FROM COUGHING. HAVING RED STREAKED SPUTUM, SPECIMEN SENT. DR. HERNANDEZ CONSULTED AT TIME OF ARRIVAL AND IN TO SEE PT SHORTLY AFTER ARRIVAL TO UNIT. PT IS ON RA WITH SPO2 GREATER THAN 90%. ECHO DONE. HYPOTENSIVE, DR. HERNANDEZ DOES NOT WANT TO GIVE IVF WITH HX OF HEART FAILURE AND BNP 2556. PT MOVES SELF IN BED FREQUENTLY. STANDS AT SIDE OF BED TO USE URINAL. USING CALL LIGHT APPROPRIATELY.
[2024-03-22] MEDS ORDERED: Albuterol 2.5 MG/3 ML VIAL INH PRN (11:55)
[2024-03-22] MEDS ORDERED: Vancomycin HCL 1,000 MG in NS 250 ML IV SCH (15:00)
[2024-03-22 15:02] LABS: Hematocrit 34.2 % (37.0-53.0); Hemoglobin 10.5 g/dL (13.5-17.5)
[2024-03-22] MEDS ORDERED: NS 250 ML IV PRN (15:30)
--- NOTE | 2024-03-22 21:16 | NUR ---
ASSUMPTION OF CARE: PT ALERT AND ORIENTED. ANSWERING QUESTIONS AND FOLLOWING COMMANDS. PT ON RA WITH SPO2 >95%. LUNGS DIMINISHED WITH FINE CRACKLES NOTED AT TIMES. PT C/O INCREASING WORK OF BREATHING, CALL PLACED TO DR. HERNANDEZ WITH ORDERS TO PLACE PT ON CPAP OVERNIGHT. RT NOTIFIED. RR 20'S. FIELD SALES EXECUTIVE IN PLACE, ST WITH HR 100'S. SBP 80'S-90'S. PT DENIES CHEST PAIN/PRESSURE AT THIS TIME. PT ABLE TO STAND AT SIDE OF BED TO USE URINAL. POWERGLIDE TO MACKENZIE, PATENT AND INFUSING TKO. PIV TO RH, PATENT AND INFUSING HEPARIN AT 15 UNITS/KG/HR. PT HAVING SMALL AMOUNTS OF RED SPUTUM. DR. HERNANDEZ AWARE. NO BM YET, BT ACTIVE IN ALL QUADRANTS. PUPILS EQUAL AND REACTIVE. PT STATED HE FEELS MORE TIRED THIS EVENING AND IS HAVING EPISODES OF DIZZINESS WHEN SITTING UPRIGHT. BED LOW AND LOCKED, CALL LIGHT IN REACH.
[2024-03-23] VITALS (46 sets, daily range): BP systolic 75–103; BP diastolic 58–88
[2024-03-23] MEDS ORDERED: Dose Adjust by Pharmacy XX STA ×3 (00:25→18:38)
[2024-03-23 00:40] LABS: BASOPHILS ABSOLUTE AUTO 0.02 K/mm3 (0.00-0.23); BASOPHILS PERCENT AUTO 0 % (0-2); EOSINOPHILS PERCENT AUTO 0 % (0-6); Hematocrit 35.4 % (37.0-53.0); Hemoglobin 10.7 g/dL (13.5-17.5); IMMATURE GRAN ABSOLUTE AUTO 0.07 K/mm3 (0.00-0.10); IMMATURE GRAN PERCENT AUTO 1 % (0-1); LYMPHOCYTES ABSOLUTE AUTO 1.38 K/mm3 (0.84-5.20); LYMPHOCYTES PERCENT AUTO 12 % (21-46); MONOCYTES ABSOLUTE AUTO 0.96 K/mm3 (0.16-1.47); MONOCYTES PERCENT AUTO 8 % (4-13); Mean Corpuscular HGB 23.5 pg (26.0-34.0); Mean Corpuscular HGB Conc 30.2 g/dL (31.5-36.5); Mean Corpuscular Volume 78 fL (80-100); NEUTROPHILS ABSOLUTE AUTO 9.58 K/mm3 (1.96-9.15); NEUTROPHILS PERCENT AUTO 80 % (41-73); NRBC ABSOLUTE 0.28 K/mm3 (0.00-0.02); NRBC Auto 2.3 /100 WBC (0.0-0.2); Platelet Count 170 K/mm3 (150-400); RDW Coefficient Variation 20.7 % (11.7-14.2); RDW Standard Deviation 56.8 fL (35.1-46.3); Red Blood Cell Count 4.56 M/mm3 (4.30-5.90); White Blood Cell Count 12.01 K/mm3 (4.00-11.30)
[2024-03-23 00:45] LABS: Mean Platelet Volume 10.9 fL (9.1-12.4)
--- NOTE | 2024-03-23 00:47 | NUR ---
UPDATE: PT HAD RUN OF VTACH WITH HR 150'S-200'S AT 2345 WITH PALPABLE FAINT PULSE. PT PALE IN THE FACE BUT NEVER LOST CONSCIOUSNESS, PT HOOKED UP TO ZOLL AND CODE CALLED. PT STATED HE FELT VERY POORLY. HE STATED HE WAS HAVING PAIN THAT RADIATED FROM HIS LEFT SHOULDER TO HIS RIBS. PT DENIED HAVING ANY CHEST PAIN BUT ENDORSED FEELING SHORT OF BREATH, SPO2 REMAINED >90%. DR. GONZALEZ AT THE BEDSIDE TO EVALUATE PT. EKG OBTAINED AND LABS DRAWN, AWAITING RESULTS. NO NEW ORDERS AT THIS TIME.
[2024-03-23 00:51] LABS: Albumin, Blood 2.7 g/dL (3.4-5.0); Albumin/Globulin Ratio 0.8 (0.8-1.8); Bilirubin, Total 2.4 mg/dL (0.1-1.0); Bun/Creatinine Ratio 28.8 (12.0-20.0); Calcium, Blood 8.2 mg/dL (8.5-10.1); Creatinine, Blood 0.94 mg/dL (0.60-1.20); Globulin, Blood 3.5 g/dL (2.2-4.0); Phosphorus, Blood 2.9 mg/dL (2.5-4.9); Potassium, Blood 3.4 mmol/L (3.5-5.5); Total Protein, Blood 6.2 g/dL (6.4-8.2)
[2024-03-23] MEDS ORDERED: Potassium Chloride 20 MEQ TabCR PO ONE (02:00)
--- NOTE | 2024-03-23 05:49 | NUR ---
SHIFT SUMMARY: PT ALERT AND ORIENTED T/O THE SHIFT. NO NEW CARDIAC EVENTS SINCE 2344, SEE UPDATE NOTE. PT ON PATIENT ASSISTANT, ST WITH HR 100'S WITH FREQUENT PVC'S. SBP 70'S-90'S. MAP >65. DENIES CHEST PAIN/PRESSURE. ENDORSES PAIN LEFT SHOULDER THAT RADIATES TO RIBS, DR. GONZALEZ AWARE. PT MEDICATED PER EMAR WITH LITTLE RELIEF. PT REMAINS ON RA, SPO2 >90%. PT ATTMEPTED TO WEAR CPAP BUT WAS UNSUCCESSFUL. STATED IT MADE HIM TOO UNCOMFORTABLE AND PT REMOVED. PT STATES HE STILL FEELS SHORT OF BREATH AT TIMES. PT STILL COUGHING UP SMALL AMOUNTS OF BLOOD TINGED SPUTUM. RR 20'S-30'S. LUNGS DIM T/O. HEPARIN DRIP INFUSING AT 12 UNITS/KG/HR. POWERGLIDE TO MACKENZIE PATENT, PIV TO RH PATENT. PT ABLE TO VOID INTO URINAL, DARK URINE. PT HAD LARGE, BROWN BM THIS EVENING. TOLERATING WATER AND ICE CHIPS THIS EVENING. BED LOW AND LOCKED, CALL LIGHT IN REACH.
--- NOTE | 2024-03-23 07:00 | NUR ---
ASSUME CARE: I have assumed care of this patient.
[2024-03-23] MEDS ORDERED: CALCIUM GLUC IN NACL, ISO-OSM 50 ML IV ONE (07:55)
[2024-03-23 08:37] LABS: International Normalized Ratio 1.83; Prothrombin Time Results 18.7 Sec (9.7-11.5)
[2024-03-23] MEDS ORDERED: Amiodarone HCl 200 MG Tab PO SCH (09:00)
--- NOTE | 2024-03-23 13:13 | NUR ---
PREFERRED PHARMACY: Pt requesting change in [facility] from [facility] due to where he is living. [facility] called to discuss what is required to make this change. veterinary surgery technologist informed RN that pt is prescribed several medications that are not currently on our medication requisition. This RN requested a current list be faxed to ICU.
[2024-03-23] MEDS ORDERED: SPIRONOLACTONE25 MG PO (13:27)
[2024-03-23] MEDS ORDERED: Naltrexone HCl50 MG PO (13:28)
[2024-03-23] MEDS ORDERED: XARELTO20 M1 PO (13:29)
[2024-03-23 14:41] LABS: Vancomycin, Trough 24.4 ug/mL (5.0-10.0)
[2024-03-23] MEDS ORDERED: Calcium Carbonate 500 MG Tab Chew PO ONE (15:45)
[2024-03-23] MEDS ORDERED: TiZANidine HCl 4 MG Tab PO PRN (16:55)
[2024-03-23] MEDS ORDERED: TraMADol HCl 50 MG Tab PO PRN (16:55)
[2024-03-23] MEDS ORDERED: Heparin Sodium 5000 Units/ML 1ML MDV IV ONE (18:25)
--- NOTE | 2024-03-23 18:41 | NUR ---
SHIFT SUMMARY: Pt up in room a few times today. He received one dose of PRN tylenol and one dose of PRN ultram for back pain. Tolerating Heart Healthy diet. Two liquid BMs. Cardiology consulted and Dr Matthews came to bedside.
--- NOTE | 2024-03-23 20:58 | NUR ---
ASSUMPTION OF CARE: RECEIVED REPORT FROM LIZET DASILVA AT 1915. PT ALERT AND ORIENTED ALTHOUGH SLEEPY THIS EVENING. DENIES PAIN, DENIES SOB, DENIES CHEST PAIN/PRESSURE. PT ON RA WITH SPOT CHECKS, SPO2 >95%. LUNGS CLEAR AND DIM WITH FINE CRACKLES NOTED IN LOWER LEFT LOBE. GOVERNMENT GUARD IN PLACE, ST WITH HR 100'S-110'S. SBP 90'S. ABLE TO URINATE IN URINAL. NO BM YET THIS SHIFT. PUPIPLS EQUAL AND REACTIVE. BT PRESENT IN ALL QUADRANTS. TOLERATING PO INTAKE WELL. RR 20'S. POWERGLIDE TO MACKENZIE PATENT AND INFUSING TKO. PIV TO RFA, PATENT AND INFUSING HEPARIN AT 11 UNITS/KG/HR. BED LOW AND LOCKED, CALL LIGHT IN REACH.
[2024-03-23] MEDS ORDERED: Vancomycin HCL 1,000 MG in NS 250 ML IV SCH (21:00)
[2024-03-23] MEDS ORDERED: Mirtazapine 15 MG Tab PO SCH (21:00)
[2024-03-24] VITALS (34 sets, daily range): BP systolic 81–98; BP diastolic 66–81
[2024-03-24 01:08] LABS: BASOPHILS ABSOLUTE AUTO 0.01 K/mm3 (0.00-0.23); BASOPHILS PERCENT AUTO 0 % (0-2); EOSINOPHILS ABSOLUTE AUTO 0.01 K/mm3 (0.00-0.68); EOSINOPHILS PERCENT AUTO 0 % (0-6); Hematocrit 36.3 % (37.0-53.0); Hemoglobin 11.1 g/dL (13.5-17.5); IMMATURE GRAN ABSOLUTE AUTO 0.12 K/mm3 (0.00-0.10); IMMATURE GRAN PERCENT AUTO 1 % (0-1); LYMPHOCYTES ABSOLUTE AUTO 1.36 K/mm3 (0.84-5.20); LYMPHOCYTES PERCENT AUTO 11 % (21-46); MONOCYTES ABSOLUTE AUTO 0.73 K/mm3 (0.16-1.47); MONOCYTES PERCENT AUTO 6 % (4-13); Mean Corpuscular HGB 23.5 pg (26.0-34.0); Mean Corpuscular HGB Conc 30.6 g/dL (31.5-36.5); Mean Corpuscular Volume 77 fL (80-100); NEUTROPHILS ABSOLUTE AUTO 9.69 K/mm3 (1.96-9.15); NEUTROPHILS PERCENT AUTO 81 % (41-73); NRBC Auto 6.7 /100 WBC (0.0-0.2); Platelet Count 175 K/mm3 (150-400); RDW Coefficient Variation 20.9 % (11.7-14.2); RDW Standard Deviation 56.7 fL (35.1-46.3); Red Blood Cell Count 4.72 M/mm3 (4.30-5.90); White Blood Cell Count 11.92 K/mm3 (4.00-11.30)
[2024-03-24 01:09] LABS: Mean Platelet Volume 10.7 fL (9.1-12.4)
[2024-03-24 01:21] LABS: Albumin, Blood 2.8 g/dL (3.4-5.0); Albumin/Globulin Ratio 0.8 (0.8-1.8); Bilirubin, Total 2.5 mg/dL (0.1-1.0); Bun/Creatinine Ratio 32.7 (12.0-20.0); Calcium, Blood 9.1 mg/dL (8.5-10.1); Creatinine, Blood 1.07 mg/dL (0.60-1.20); Globulin, Blood 3.5 g/dL (2.2-4.0); Magnesium, Blood 2.1 mg/dL (1.6-2.4); Phosphorus, Blood 3.6 mg/dL (2.5-4.9); Potassium, Blood 4.7 mmol/L (3.5-5.5); Total Protein, Blood 6.3 g/dL (6.4-8.2)
[2024-03-24] MEDS ORDERED: Dose Adjust by Pharmacy XX STA ×4 (01:44→22:51)
[2024-03-24] MEDS ORDERED: Heparin Sodium 5000 Units/ML 1ML MDV IV ONE ×2 (01:45→08:50)
--- NOTE | 2024-03-24 05:53 | NUR ---
SHIFT SUMMARY: NO ACUTE CHANGES OVERNIGHT. REMAINS ALERT AND ORIENTED. PT ABLE TO REST THIS EVENING. REMAINS ON RA WITH SPO2 >95%. RR 20'S-30'S. FINE CRACKLES NOTED IN LEFT LOWER LUNG. HEPARIN DRIP INFUSING AT 14 UNITS/KG/HR THROUGH PIV. POWERGLIDE TO MACKENZIE, PATENT AND SALINE LOCKED. COAL DIGGER IN PLACE, ST, HR 110'S-120'S. NO C/O CHEST PAIN OR SOB. SBP 90'S. ABLE TO VOID INTO URINAL IND. NO BM THIS SHIFT. TOLERATING PO INTAKE WELL. BED LOW AND LOCKED, CALL LIGHT IN REACH.
--- NOTE | 2024-03-24 07:15 | NUR ---
ASSUMPTION OF CARE: ASSUMED CARE OF PATIENT. PATIENT SLEEPING IN THE BED. EASILY AWAKENS TO VERBAL STIMULI. PATIENT DENIES PAIN OR DISCOMFORT AT THIS TIME. SBP LOW 80S-90S. MAPS >65. HR IN THE 100S-110S. SPOT CHECK OF SPO2 IS 93%. NO SIGNS OF RESPIRATORY DISTRESS. HEPARIN INFUSING AT 14 MCG/KG/HOUR. PATIENT BELONGINGS AND CALL LIGHT WITHIN REACH.
[2024-03-24] MEDS ORDERED: Digoxin 0.125 MG Tab PO SCH (09:00)
[2024-03-24] MEDS ORDERED: Bumetanide 1 MG Tab PO SCH (10:05)
[2024-03-24] MEDS ORDERED: Nicotine 21 MG PATCH TOP SCH (18:10)
--- NOTE | 2024-03-24 18:35 | NUR ---
SHIFT SUMMARY: NEURO: PATIENT FATIGUED THROUGHOUT THE SHIFT. PATIENT REPORTED THAT HE HADN'T SLEPT FOR A FEW DAYS. PATIENT AWOKE EASILY TO VERBAL STIMULI, BUT FELL BACK ASLEEP QUICKLY. AT THE END OF SHIFT, PATIENT WOKE AND REPORTED FEELING BETTER. PATIENT SAT AT BEDSIDE AND ATE HIS DINNER. PATIENT DENIED NUMBNESS/TINGLING THROUGHOUT. PATIENT ABLE TO STAND AT BEDSIDE TO VOID. CARDIAC: PATIENT STARTED THE SHIFT IN SINUS TACH WITH HR IN THE 100S-110S. THE SHIFT PROGRESSED, PATIENT HR CAME DOWN TO THE 80S-90S. SBPS REMAINED IN THE 80S-90S. MAPS >65. NARROW PULSE PRESSURE. PATIENT DENIED CHEST PAIN OR DISCOMFORT. SOME DIZZINESS WITH SITTING UP SUDDENLY. NO CHANGES TO BLOOD PRESSURE NOTED POST METOPROLOL ADMINISTRATION. HR DID IMPROVE. RESPIRATORY: PATIENT STABLE ON ROOM AIR WHEN AWAKE. THIS AFTERNOON, PATIENT NOTED TO HAVE PERIODS OF APNEA. PLACED ON CPAP WITH KATINA CHONG. NO FURTHER APNEA OR CHANGES TO SPO2 WHEN SLEEPING AFTER CPAP PLACED. SPO2 >94% WITH CPAP. PATIENT DENIED SHORTNESS OF BREATH OR DIFFICULTY BREATHING. PATIENT REPORTS APNEA AT HOME WHEN SLEEPING. GI/: PATIENT TOLERATING PO IN TAKE WITHOUT NAUSEA. PATIENT DECLINED HIS BREAKFAST AND LUNCH, BUT DID DRINK HIS ENSURES AND WAS WORKING ON HIS DINNER AT THE TIME OF THIS NOTE. PATIENT VOIDING WITHOUT DIFFICULTY. PSYCHSOCIAL: PATIENT CALM AND COOPERATIVE. PATIENT FLAT AND WITHDRAWN. PATIENT VERY FATIGUED TODAY.
--- NOTE | 2024-03-24 20:00 | NUR ---
ASSUMED CARE OF PATIENT AT 1900. REPORT RECEIVED FROM VIDYA RESENDEZ. PT RESTING IN BED. DINNER TRAY IS UNTOUCHED AND PT STATES HE IS DONE WITH IT. CONTINOUS CARDIAC MONITORING IN PLACE REFLECTS SINUS RHYTHM WITH HR IN 90'S, BP 97/79 WITH MAP OF 86. ON RA WITH SATURATIONS OF 95%. PT DENIES PAIN AND SOB. HEPARIN INFUSING AT 17 U/KG/HR. NO ACUTE NEEDS IDENTIFIED AT THIS TIME. SEE SHIFT ASSESSMENT FOR FULL DETAILS.
[2024-03-25] VITALS: BP 82/70
[2024-03-25 01:00] VITALS: BP 90/78
--- NOTE | 2024-03-25 05:20 | NUR ---
SHIFT SUMMARY PT ALERT AND ORIENTED X 3 T/O ENTIRETY OF SHIFT. UNABLE TO VERBALIZE EXACT REASON FOR HOSPITALIZATION. AFEBRILE. REPORTED ONE EPISODE OF PAIN "UP AND DOWN HIS BACK". MEDICATED PER EMAR WITH GOOD BENEFIT. CONTINOUS CARDIAC MONITORING IN PLACE REFLECTS SINUS TACH WITH HR IN 100'S-110'S. SBP 80'S-90'S WITH MAP > 65. ON ROOM AIR WITH SATURATIONS > 92%, DENIES SOB. NO BM THIS SHIFT. DECREASED APPETITE, BUT TOLERATING PO LIQUIDS WELL. PRODUCTIVE COUGH WITH SCANT, BLOOD TINGED SECRETIONS OUT. UTILIZES BEDSIDE URINAL WITH DARK YELLOW URINE OUT. VARIOUS SCABS ON BLE'S. PG TO MACKENZIE, POSITIONAL. PIV TO RWR INFUSING HEPARIN AT 18 U/KG/HR. LABS PENDING. WILL CONTINUE TO MONITOR AND REPORT TO ONCOMING RN.
[2024-03-25 05:30] LABS: BASOPHILS ABSOLUTE AUTO 0.01 K/mm3 (0.00-0.23); BASOPHILS PERCENT AUTO 0 % (0-2); EOSINOPHILS PERCENT AUTO 0 % (0-6); Hematocrit 36.7 % (37.0-53.0); Hemoglobin 10.9 g/dL (13.5-17.5); IMMATURE GRAN ABSOLUTE AUTO 0.16 K/mm3 (0.00-0.10); IMMATURE GRAN PERCENT AUTO 1 % (0-1); LYMPHOCYTES ABSOLUTE AUTO 1.69 K/mm3 (0.84-5.20); LYMPHOCYTES PERCENT AUTO 11 % (21-46); MONOCYTES PERCENT AUTO 8 % (4-13); Mean Corpuscular HGB 23.7 pg (26.0-34.0); Mean Corpuscular HGB Conc 29.7 g/dL (31.5-36.5); Mean Corpuscular Volume 80 fL (80-100); Mean Platelet Volume 11.1 fL (9.1-12.4); NEUTROPHILS ABSOLUTE AUTO 12.38 K/mm3 (1.96-9.15); NEUTROPHILS PERCENT AUTO 80 % (41-73); NRBC Auto 7.1 /100 WBC (0.0-0.2); Platelet Count 182 K/mm3 (150-400); RDW Coefficient Variation 21.7 % (11.7-14.2); RDW Standard Deviation 59.2 fL (35.1-46.3); White Blood Cell Count 15.54 K/mm3 (4.00-11.30)
[2024-03-25] MEDS ORDERED: Dose Adjust by Pharmacy XX STA (05:43)
[2024-03-25 05:57] LABS: Albumin, Blood 2.6 g/dL (3.4-5.0); Albumin/Globulin Ratio 0.7 (0.8-1.8); Bilirubin, Total 1.8 mg/dL (0.1-1.0); Bun/Creatinine Ratio 41.3 (12.0-20.0); Calcium, Blood 8.6 mg/dL (8.5-10.1); Creatinine, Blood 1.09 mg/dL (0.60-1.20); Globulin, Blood 3.6 g/dL (2.2-4.0); Magnesium, Blood 2.3 mg/dL (1.6-2.4); Potassium, Blood 4.6 mmol/L (3.5-5.5); Total Protein, Blood 6.2 g/dL (6.4-8.2)
[2024-03-25 08:00] VITALS: BP 83/72
[2024-03-25 08:59] LABS: Vancomycin, Trough 24.2 ug/mL (5.0-10.0)
[2024-03-25] MEDS ORDERED: Scopolamine Hydrobromide Patch TOP PRN (10:55)
[2024-03-25] MEDS ORDERED: Atropine Sulfate 1% Opth Soln 2ML BTL SL PRN (10:55)
[2024-03-25] MEDS ORDERED: Ondansetron HCl 2 MG / ML 2ML Vial IV PRN (10:55)
[2024-03-25] MEDS ORDERED: LORazepam 1 MG Tab PO PRN (11:00)
[2024-03-25] MEDS ORDERED: Morphine Sulfate 20 MG/1ML 1 ML Oral Syringe SL PRN (11:00)
[2024-03-25] MEDS ORDERED: LORazepam 2 MG/ML 1ML Injection IV PRN (11:00)
[2024-03-25] MEDS ORDERED: Morphine Sulfate 10 MG/ML 1MLSYR IV PRN (11:00)
[2024-03-25 12:00] VITALS: BP 90/78
--- NOTE | 2024-03-25 15:01 | NUR ---
PT DROWSY, ORIENTED TO PERSON, PLACE, AND TIME. USES CALL LIGHT. PT IS HAVING HEMOPTYSIS. PT WAS CHANGED TO COMFORT CARE THIS AM. ONE DOSE OF MORPHINE GIVEN. PT HAS POOR APPETITE, DID NOT EAT BREAKFAST OR LUNCH. TRANSFERING TO MEDICAL FLOOR 342, NO SIGN OF DISTRESS.
[2024-03-25] MEDS ORDERED: Vancomycin HCL 1,000 MG in NS 250 ML IV SCH (16:00)
--- NOTE | 2024-03-25 16:10 | NUR ---
TRANSFERRED NOTE: PATIENT ARRIVES TO ROOM AT 1510 VIA BED FROM ICU, TRANSFERRED USING SLIDER SHEET c 3 MAX ASSIST. ASSUME CARE OF PATIENT. PATIENT ORIENTATED TO ROOM AND CALL SYSTEM. SKIN ASSESSMENT c 2 RN'S VERIFIED COMPLETED. MIPELEX DRESSING PLACED TO COCCYX FOR PROTECTION. PATIENT REPORTS PAIN "ALL OVER AND NAUSEOUS", MEDICATED FOR PAIN AND NAUSEA c GOOD EFFECT. PATIENT LAYING ON HIS R SIDE c HOB ELEVATED TO 35 DEGREES. BED ALARM ON FOR SAFETY. CALL LIGHT IN REACH.
--- NOTE | 2024-03-26 06:31 | NUR ---
SHIFT SUMMARY PATIENT ALERT AND ORIENTED X3. SEEMS TO BE CONFUSED TWICE HE ENDED UP STANDING ON THE SIDE OF HIS BED AND URINATING ON THE FLOOR. BED ALARM ON. PATIENT MEDICATED PER EMAR FOR SLEEP. HE DID NOT SHOW ANY SIGNS OF PAIN OR AIR HUNGER. CONTINUES ON ROOM AIR. NO ACUTE ISSUES NOTED OVERNIGHT. WILL CONTINUE TO MONITOR. CALL LIGHT WITHIN REACH.
--- NOTE | 2024-03-26 16:58 | NUR ---
FAMILY IN ROOM WITH PATIENT AT THIS TIME. JACKIE HAVING DISCUSSION WITH PATIENT THAT HE DOESN'T NEED TO BE COMFORT CARE OR SEEK HOSPICE CARE, THAT "HE MAY HAVE MANY MORE YEARS TO SHARE WITH THEM". PALLIATIVE CONTACTED, PALLIATIVE STATED THEY WOULD BE IN SHORTLY TO VISIT WITH FAMILY. PATIENT ABLE TO VERBALIZE AT THIS TIME THAT HE DESIRES COMFORT MEASURES ONLY.
--- NOTE | 2024-03-26 17:18 | NUR ---
Met with Lauri at bedside. She identifies herself as "chosen family". Pt has been living with Lauri and Les for the past month. They state they are willing to take pt home with hospice. However, the patient is no longer responsive,and this RN is unsure if there is a plan for discharge yet. Will request my colleague follow up with care managment in the morning. Lauri is reaching out to pt's son Anand to come and visit if he is able, and to inform him of the situation. Palliative care will remain available.
--- NOTE | 2024-03-26 17:41 | NUR ---
SHIFT SUMMARY PATIENT IN BED ALL SHIFT, RESTING QUIETLY WITH EYES CLOSED MOSTLY WITH A FEW MOMENTS OF WAKEFULLNESS. NO URINE OUTPUT AT THIS TIME, STATES HE DOESN'T NEED TO. FAMILY IN ROOM AT THIS TIME, IS GOING TO STAY CONTINUOUSLY. PALLIATIVE IN ROOM WITH FAMILY. PATIENT IS SOMETIMES ABLE TO MAKE NEEDS KNOWN. CALL LIGHT IN REACH, CARES ONGOING.
[2024-03-26] MEDS ORDERED: TraZODone HCl 50 MG Tab PO SCH (21:00)
[2024-03-26] MEDS ORDERED: Melatonin 5 MG Tablet PO SCH (21:00)
[2024-03-26] MEDS ORDERED: GuaiFENesin 600 MG TabCR PO SCH (21:00)
--- NOTE | 2024-03-27 17:24 | NUR ---
SHIFT SUMMARY; PATIERNT ON COMFORT CARE. SON TRACIE GEORGE (KORTNEY) AT BEDSIDE. PER PATIENT REQUEST FAMILY SAYS SON IS TO MAKE DECISIONS FOR PATIENT. HIS PHONE NUMBER ISD [phone]. PATIENT IS RESPONDING THIS LATE AFTERNOON TO VERBAL STIMULI. MAKES GRUNTING NOISES AND REACHES OUT TO FAMILY. FAMILY REQUESTING HE IS NOT MEDICATED WITH MORPHINE THEY FEEL IT MAKES HIM AGITATED.
--- NOTE | 2024-03-28 05:30 | NUR ---
SHIFT SUMMARY PATIENT ON COMFORT CARE. NON-VERBAL AND BEDREST WITH EYES CLOSED. ROXANOL 20 MG GIVEN PER EMAR AND ATROPINE DROPS FOR SECRETIONS. POWERGLIDE RU ARM INTACT. ONE PERSON STAYED OVERNIGHT. CALL LIGHT IN REACH. BED IN LOWEST POSITION. WILL CONTINUE TO MONITOR UNTIL DAY SHIFT NURSE ASSUMES CARE.
--- NOTE | 2024-03-28 17:24 | NUR ---
REVIEWED NOTES AND ASSESSMENTS BY NYDIA HENLEY.
--- NOTE | 2024-03-28 19:07 | NUR ---
DELAYED ENTRY, 03/28/24 APX 1030 SUPPORTIVE VISIT WITH FAMILY S/P PT'S PASSING. PT'S SON IS AT BEDSIDE IN A STATE OF SHOCK. IRVIN GEORGE, PT'S EX- AND MOTHER OF SON IS MAKING FINAL ARRANGEMENTS WITH JESUS OGLESBY AND NOTIFING OTHER FAMILY/FRIENDS. THERAPUTIC LISTENING PROVIDED. PHONE NUMBER FOR IRVIN GEORGE [phone].
== END 2024-03-28 10:00 | DRG 871 ==
LOC: ER 00:52 → ICUE 02:52 → MEDS 02:52 → ERHOLD 02:52 → ICUE 08:37 → MEDS 03-25 15:14
PROVIDERS: Emergency Medicine; Family Medicine; Internal Medicine Critical Care Medicine; ADMIT Student in an Organized Health Care Education/Training Program
PROC: 3E03329 Introduction of Other Anti-infective into Peripheral Vein, Percutaneous Approach (ICD-10-PCS; principal; 2024-03-22)
PROC: 5A09357 Assistance with Respiratory Ventilation, Less than 24 Consecutive Hours, Continuous Positive Airway Pressure (ICD-10-PCS; 2024-03-24)
DX: A41.9 Sepsis, unspecified organism (principal); E43 Unspecified severe protein-calorie malnutrition; I26.99 Other pulmonary embolism without acute cor pulmonale; I50.23 Acute on chronic systolic (congestive) heart failure; J86.9 Pyothorax without fistula; J18.9 Pneumonia, unspecified organism; R04.2 Hemoptysis; I42.6 Alcoholic cardiomyopathy; I47.20 Ventricular tachycardia, unspecified; Z51.5 Encounter for palliative care; Z66 Do not resuscitate; R65.20 Severe sepsis without septic shock; F10.20 Alcohol dependence, uncomplicated; D50.9 Iron deficiency anemia, unspecified; I08.1 Rheumatic disorders of both mitral and tricuspid valves; F17.200 Nicotine dependence, unspecified, uncomplicated; Z86.711 Personal history of pulmonary embolism; Z79.01 Long term (current) use of anticoagulants; Z91.199 Patient's noncompliance with other medical treatment and regimen due to unspecified reason; Z71.6 Tobacco abuse counseling; Z68.20 Body mass index [BMI] 20.0-20.9, adult
CPT/HCPCS: 36415; 71045; 71260; 80053; 80202; 82330; 82728; 83540; 83550; 83605; 83735; 83880; 84100; 84145; 84484; 85014; 85018; 85025; 85610; 85730; 86850; 86900; 86901; 87040; 87070; 87205; 92610; 93005; 93010; 93306; 94660; 94762; 96365-59; 96375-59; 99285-25; A9270; C1751; G0378; J0612; J1644; J1750; J2060; J2185; J2270; J2405; J2916; J3370; J7050; Q9967